=== PATIENT | male | born 1935 | race Caucasian/White ===

== ENCOUNTER 2019-10-16 01:21 | Inpatient (IN) | payer MEDICARE ==
[~2019-10-16] VITALS: Ht 180.3 cm
[2019-10-16 01:47] VITALS: BP 124/62
[2019-10-16] MEDS ORDERED: COGENTIN0.5 MG PO (01:56)
[2019-10-16] MEDS ORDERED: EXELON1 EAC2 TD (01:58)
[2019-10-16] MEDS ORDERED: NATURE'S BLEND F1 MG PO (01:59)
[2019-10-16] MEDS ORDERED: FLOMAX0.4 MG PO (01:59)
[2019-10-16] MEDS ORDERED: METOPROLOL SUCC25 M2 PO (02:03)
[2019-10-16] MEDS ORDERED: REMERON30 M1 PO (02:04)
[2019-10-16] MEDS ORDERED: COL-RITE100 M1 PO (02:06)
[2019-10-16] MEDS ORDERED: VISTARIL50 MG PO (02:07)
[2019-10-16] MEDS ORDERED: VITAMIN D31250 MC1 PO (02:08)
[2019-10-16] MEDS ORDERED: ZOCOR80 MG PO (02:08)
[2019-10-16] MEDS ORDERED: VISTARIL25 MG PO (02:10)
[2019-10-16] MEDS ORDERED: TYLENOL EXTRA500 MG PO (02:11)
[2019-10-16] MEDS ORDERED: OXYGEN NAS (02:12)
--- NOTE | 2019-10-16 02:25 | NUR ---
KENDY YLONS A a 84 year old M admitted via stretcher from the EMERGENCY ROOM as a emergency 72 hr. hold admission. Arrived on unit at 0125. ALLERGIES: NKA. Vital signs are: 97.3-58-20 124/62 NO FORMS SIGNED ON ADMISSION. ADMITTED UNDER THE SERVICES OF DR BIENVENIDO COLEARYAN. A search was conducted and hazardous articles were removed. Client was oriented to the unit. PT ALERT TO PERSON ONLY. PT CALM & QUIET. DISINTERESTED IN ADMISSION PROCESS. NU GONZALEZ
[2019-10-16 02:37] VITALS: BP 124/62
--- NOTE | 2019-10-16 03:08 | NUR ---
DR NGUYEN NOTIFIED OF CONSULT & MED REQ READY FOR REVIEW. CONSULT TO BE PLACED UNDER DR LOVELACE
--- NOTE | 2019-10-16 03:12 | NUR ---
DR NGUYEN ON UNIT TO SEE PT FOR MEDICAL CONSULT
--- NOTE | 2019-10-16 07:39 | NUR ---
ELLEN QUICK, HYDROGEN BRAZE FURNACE OPERATOR NOTIFIED OF NEW ADMISSION VIA VOICE MAIL BY NIGHT STAFF NURSE.
[2019-10-16 07:59] VITALS: BP 122/70
[2019-10-16 08:07] LABS: BASO % 0.2 % (0.0-1.0); EOS # 0.1 10*3/uL (0.0-0.4); EOS % 2.4 % (1.0-4.0); HEMATOCRIT 39.3 % (42.0-52.0); LYMPH # 1.1 10*3/uL (1.3-4.4); LYMPH % 21.2 % (27.0-41.0); MEAN CELL VOLUME 87.3 fl (80.0-94.0); MEAN CORPUSCULAR HGB 26.9 pg (27.0-31.0); MEAN CORPUSCULAR HGB CONC 30.8 g/dl (33.0-37.0); MEAN PLATELET VOLUME 9.7 fl (9.6-12.3); MONO # 0.5 10*3/uL (0.1-1.0); MONO % 9.7 % (3.0-9.0); NEUT # 3.3 10*3/uL (2.3-7.9); NEUT % 66.3 % (47.0-73.0); PLATELET COUNT AUTOMATED 118 10*3/uL (130-400); RED CELL DISTRI WIDTH 13.2 % (0-14.5)
[2019-10-16 08:24] LABS: ALKALINE PHOSPHATASE 122 U/L (45-117); BUN 20 mg/dl (7-24); CHLORIDE 108 mmol/L (98-107); CHOLESTEROL 138 mg/dL (<200); CREATININE 0.79 mg/dL (0.70-1.30); HDL CHOLESTEROL 54 mg/dl (40-60); LDL CHOLESTEROL 73 mg/dL (9-159); POTASSIUM 4.2 mmol/L (3.5-5.1); SGOT/AST 10 IU/L (3-35); SGPT/ALT 12 U/L (12-78); SODIUM 141 mmol/L (136-145); TOTAL PROTEIN 6.3 gm/dL (6.4-8.2); TRIGLYCERIDES 55 mg/dl (<150); VLDL CHOLESTEROL 11 mg/dL (6-40)
[2019-10-16 09:08] LABS: VITAMIN D, 25-HYDROXY 55.6 ng/mL (30-100)
--- NOTE | 2019-10-16 10:00 | NUR ---
DR. NEUMANN ON UNIT TO ASSESS PATIENT.
--- NOTE | 2019-10-16 10:14 | NUR ---
PSYCHOSOCIAL HX COMPLETED THIS DATE
--- NOTE | 2019-10-16 12:00 | NUR ---
DR UPDATED ON PT STATING SHE VOMITED. DR STATED HE WOULD LOOK AT MEDS AND MAYBE ORDER ZOFRAN FOR NAUSEA.
--- NOTE | 2019-10-16 15:10 | NUR ---
Shift chart check completed.
--- NOTE | 2019-10-16 17:37 | NUR ---
PT WITHDRAWN TO SELF. QUIET AND MUTE THIS SHIFT. NO OUTBURTS NOTED. NO HALLUCINATIONS OR DELUSIONS NOTED. WILL CONTINUE TO MONITOR BEHAVIORS WITH Q15 MINUTE SAFETY CHECKS. SEE [facility] FLOWS[facility]ET FOR SPECIFIC MONITORING.
--- NOTE | 2019-10-16 19:56 | NUR ---
24 HR chart check completed.
[2019-10-16 20:00] VITALS: BP 130/72
--- NOTE | 2019-10-16 21:40 | NUR ---
PT REMAINS WITHDRAWN & MUTE. HOWEVER DID NOD HIS HEAD YES OR NO WHEN ASKED QUESTIONS. ONLY WORDS HE SPOKE SOFTLY WAS WHEN HE STATED HIS NAME. QUESTIONS ASKED. CAN YOU TALK- NODDED HEAD NO ARE YOU DEPRESSED-NODDED HEAD YES ARE YOU UPSET ABOUT SOMETHING- NODDED HEAD YES DO YOU UBALDO TO TALK ABOUT IT- NODDED HEAD NO WILL YOU TAKE YOUR MEDICATIONS-NODDED HEAD YES CAN I GET YOU ANYTHING-NODDED HEAD NO MADE NO EYE CONTACT, ATE SNACK. COMPLIANT WITH MEDS, SITS QUIETLY & KEEPS TO SELF. 2 STAFF ASSISTS REQUIRED. INCONTINENT OF URINE.
--- NOTE | 2019-10-17 02:12 | NUR ---
PT WAS TURNED ONTO BACK & ON ROUNDS AT THIS TIME PT WAS NOTED TO REPOSITION HIMSELF ON HIS LEFT SIDE.
--- NOTE | 2019-10-17 06:00 | NUR ---
PT HAS SLEPT PAST 2199
[2019-10-17 07:53] VITALS: BP 120/68
--- NOTE | 2019-10-17 09:00 | NUR ---
Treatment Plan meeting was held this a.m. with Dr. Zuñiga, RN, AT, TOOL ADJUSTER-S and Drafting Instructor. Plan for discharge Next Week. Pt. came to [facility] from [facility]. Will reach out to facility today to discuss discharge Planning.
--- NOTE | 2019-10-17 09:00 | NUR ---
Occupational Therapy evaluation completed on three with full evaluation to follow. Recommend occupational therapy per plan of care and SNF upon discharge. Thank you for this referral. Shaylee Russo OTR/L
--- NOTE | 2019-10-17 10:29 | NUR ---
PHYSICAL THERAPY Physical Therapy evaluation completed in U with full evaluation to follow. Recommend physical therapy per plan of care and SNF upon discharge. Thank you for this referral. Rajeev Jimenez SPT Kamilah Mckeon PT
--- NOTE | 2019-10-17 11:15 | NUR ---
Family meeting held this AM by phone with pt's daughter/DPOAHC Edith High. Edith explained that pt moved to [facility] one week before the NFs were closed to visitors because of COVID 19. Edith stated that they hadn't even gotten pt's room entirely set-up with his belongings. Pt's roommate did get COVID and pt was then forced into isolation for 42 days and then moved to a new room. Now that outdoor visitation is allowed, Edith sees pt 2x a week and pt's brother Murray sees pt 1x a week. When asked about pt's interests, pt enjoyed anything that was made from occupied [place]. Edith stated that at one time, pt had the largest collection in the [place] of items from occupied [employer]. He enjoyed restoring his [facility] house, which Edith is currently moving in to. Pt doesn't watch much TV but does like Wheel of Fortune, Jeopardy, and [employer]. Confirmed discharge plan of pt returning to [facility].
--- NOTE | 2019-10-17 11:17 | NUR ---
PT'S DAUGHTER CALLED IN AND SPOKE TO THIS NURSE. THE DAUGHTER STATED SHE IS THE POA. THIS NURSE ASKED THE POA TO PROVIDE THE PAPERWORK. THE DAUGHTER STATED THE FACILITY NEVER CALLED HER YESTERDAY AND WAS UNAWARE THAT THE PT WAS BROUGHT HERE AND THE REASON FOR ADMISSION. THIS NURSE LET THE PT SPEAK TO HIS DAUGHTER AND THE PT GAVE VERY SIMPLE RESPONSES. THE DAUGHTER SAID HELLO TO HER FATHER AND HE SAID HELLO BACK. THE DAUGHTER ASKED THE PT IF HE TRIED TO HURT HIMSELF AND HE STATED YES. THE DAUGHTER THEN ASKED WHY AND THE PT STATED "I DONT KNOW" THE PT THEN REFUSED TO SPEAK TO THE DAUGHTER. THE PATIENT SAT THERE WITH HIS HEAD DOWN AND EYES CLOSED AND WAS QUIET. THIS NURSE ASKED THE DAUGHTER TO CALL BACK SO SHE COULD SPEAK TO THE DIRECTOR OF VIDEO ANALYTICS. THE DAUGHTER DID CALL BACK AND WAS TRANSFERRED TO THE DIRECTOR OF VIDEO ANALYTICS AT THAT TIME. THE DAUGHTER SOUNDED VERY CONCERNED AND CARING TOWARDS HER FATHER.
--- NOTE | 2019-10-17 11:53 | NUR ---
AM GROUP/[facility] PT WAS PRESENT FOR MORNING GROUP THERAPY RECLINED IN A RONEN CHAIR. PT WOULD NOT RESPOND TO MY ASSESSMENT QUESTIONS AND TURNED DOWN ANY ACTIVITY OFFERED. PT WAS REMOVED FROM THE ROOM AND RETURNED ONLY TO NAP IN HIS CHAIR. PT EXHIBITED NO ADVERSE BEHAVIORS WHILE IN GROUP.
--- NOTE | 2019-10-17 11:55 | NUR ---
Spoke with Litzy at [facility]. Pt. is a [employer] Care Resident and can return at discharge. Discussed discharge Plans for next week, Provided with Updates and Faxed clinical Updates to Facility.
--- NOTE | 2019-10-17 13:13 | NUR ---
P: DEPRESSED MOOD. VOICED HOMICIDAL THOUGHTS TOWARD DAUGHTER. EXPRESSED BEING FRUSTRATED WITH DAUGHTER BECAUSE SHE HASN'T BEEN IN TO SEE HIM. HE IS SAD AND FEELS LONELY. I: ONE ON ONE FOR EMOTIONAL SUPPORT. PROVDIED ORIENTATION TO PLACE. R: EFFECTIVE. PATIENT VOICED SIMPLE, ONE TO TWO WORDS ANSWERS, DURING ASSESSMENT. PATIENT COMMUNICATING A LITTLE BETTER TODAY. ALERT TO PERSON, MONTH, YEAR, AND LOCATION. BELIEVES HE IS IN [facility]. DEPRESSED, SAD, LONELY, HOPELESS/HELPLESS. FLAT AFFECT. DENIES HALLUCINATIONS, DELUSIONS, HI, AND PAIN. MEDICATION [id number] WITH EDUCATION. Q 15 MINUTE SAFETY CHECKS MAINTAINED. 2 ASSIST WITH ADL'S. INCONTINENT OF BOWEL AND BLADDER. GERICHAIR FOR COMFORT. SET UP FOR MEALS. INTAKES ARE IMPROVING WITH ADEQUATE FLUIDS. ATTENDED MORNING GROUP SESSION. MORE INTERACTIVE WITH NURSE. P: CONTINUE TO MONITOR FOR SI, HI, MOOD, MEAL INTAKES. PROVIDE ONE ON ONE FOR EMOTIONAL SUPPORT. ENCOURAGE TO INTERACT WITH STAFF. ENCOURAGE PATIENT TO ATTEND MORE GROUP SESSIONS.
--- NOTE | 2019-10-17 14:54 | NUR ---
PATIENT ASSISTED INTO SHOWER CHAIR. UPON REMOVING AMY HOSE PATIENT HAS AN OPEN AREA TO RIGHT MULLEN THAT WAS PREVIOUSLY SCABBED OVER. NOTIFIED ALEJANDRA MARTINEZ OF OPEN AREA AND NEED WOUND ORDERS. NOTIFIED AUTO EMISSIONS TECHNICIAN. NOTIFIED NICHOLAS, PATIENTS DAUGHTER.
--- NOTE | 2019-10-17 15:51 | NUR ---
PM GROUP/RELAXATION PT WAS PRESENT AT THE START OF GROUP SEATED AT A TABLE STILL EATING LUNCH. PT WAS ASSISTED WITH HIS DRINK AND GIVEN A WET WIPE TO WIPE HIS NOSE. PT WAS FINISHED AND WHEN THE TRAY WAS REMOVED PT WAS OFFERED MANY ACTIVITY OPTIONS. PT SHOOK HIS HEAD NO TO ALL OFFERS. PT FELL ASLEEP. PT WAS REMOVED BY [facility] AND TAKEN TO BED. PT EXHIBITED NO ADVERSE BEHAVIORS WHILE IN GROUP.
--- NOTE | 2019-10-17 18:09 | NUR ---
PATIENT IN DINING AREA CHEWING CHICKEN TENDERS AND SPITTING OUT THEM OUT ON THE TABLE AFTER A COUPLE OF CHEWS. PATIENT TOLERATING ICE CREAM DURING DINNER. PATIENT ORDERED ANOTHER TRAY FOR DINNER WITH SOFT FOODS AND PATIENT OFFERED MORE ICE CREAM AT THIS TIME. PATIENT TOLERATING SOFT FOODS AT THIS TIME AND NOT REGULAR FOOD PER DIET ORDER
--- NOTE | 2019-10-17 19:43 | NUR ---
24 HR chart check completed.
[2019-10-17 20:00] VITALS: BP 106/52
--- NOTE | 2019-10-18 00:37 | NUR ---
PT HAS SAT IN THE DINING ROOM & KEPT TO HIMSELF. ALERT TO PERSON ONLY. HAS REMAINED MOSTLY NON VERBAL. APPEARS DEPRESSED & SAD. ATE SNACK. COMPLIANT TAKING MEDICATIONS WHOLE. 2 STAFF ASSISTS REQUIRED. INCONTINENT OF URINE.
--- NOTE | 2019-10-18 05:52 | NUR ---
PT HAS SLEPT QUIETLY PAST 2200. INCONTINENT OF URINE THIS AM.
--- NOTE | 2019-10-18 07:20 | NUR ---
PHYSICAL THERAPY Patient seen this am for therapy visit and was resting semi reclined in activity room Nichol chair upon therapist arrival. Patient identified by name / on L wrist band as patient was pretty much non-verbal throughout most of treatment. OT casting assistant was also present this morning for observation only as patient was transported via Nichol chair to [facility] for treatment. Patient able to follow short, simple commands while performing sit to stand transfer at [facility], MOD A x 2, tolerating approx 40 seconds static stand first attempt and 1 minute second trial, CGA to maintain upright position, however with increased B knee flexion. Patient reported increased c/o of pain, 10/10 when asked, and was only able to respond with hand gesture by holding up 10 fingers. Following brief seated rest break, patient tolerated B LE prolonged stretch secondary to increased B hamstring tightness. Patient nodded yes when asked if pain felt better, but did not rate this time. Patient remained in Nichol chair with body alarm in activity room, under [facility] staff Supervison. Will continue per POC as tolerated, total treatment time 15 minutes. Moises Azar, TAPROOM ATTENDANT
--- NOTE | 2019-10-18 07:36 | NUR ---
OT NOTE Prior to coming to the floor spoke with nursing staff and reported that therapy was coming to treat this pt, nursing gave approval. Pt was seen this A.M. 1:1 for 16 minute OT session with PARADI TENDER and nursing staff present for observation only. Upon arrival pt was sitting upright in the farhad chair in the dining colon. Pt identified by name and on wristband due to pt being non verbal throughout session. Pt was taken out to the hallway where he completed multiple sit to stand transfers from chair level with modA X 2 and use of giles rail for UE support. Challenged pt's static standing tolerance needed for increased I in self care tasks and functional transfers, pt was able to tolerate aprox 40-60 seconds before sitting due to fatigue and pain in B knees which he rated a 10/10 by holding up his fingers. Pt was left sitting upright in the farhad chair in the dining colon under [facility] staff supervision. Continue with rec D/C plan to SNF. BRIANNA Herrera
--- NOTE | 2019-10-18 07:42 | NUR ---
PHYSICAL THERAPY Screen received pt has already been evaluated and is on caseload Kamilah Mckeon PT
[2019-10-18 07:58] VITALS: BP 124/61
--- NOTE | 2019-10-18 09:00 | NUR ---
Treatment Plan meeting was held this a.m. with Dr. Zuñiga via telephone, HOUSEKEEPER NANNY Shannan, RN, AT, HEALTHCARE BUSINESS ANALYST-S and Front Counter Attendant in attendance. Plan for discharge Next Week. Pt. will return to the [facility].
--- NOTE | 2019-10-18 09:15 | NUR ---
ANA LUISA DAIRY NUTRITION SPECIALIST ON UNIT TO SEE PT AT THIS TIME.
--- NOTE | 2019-10-18 11:47 | NUR ---
AM GROUP PT WAS BROUGHT INTO GROUP THERAPY BY NURSING FROM THE QUIET ROOM. PT WAS GIVEN WARM BLANKETS AND FELL ASLEEP RECLINED IN A RONEN CHAIR. PT WOULD WAKE, LOOK AROUND AND GO BACK TO SLEEP.
--- NOTE | 2019-10-18 12:39 | NUR ---
SPEECH PATHOLOGY Clinical swallowing evaluation completed as per orders. Patient was admitted from [facility] with major depressive disorder and suicidal ideation with further history including CAD, AD and anxiety. Patient is currently receiving a soft diet and thin liquid due to reported difficulty tolerating chicken tenders recently. He was seen during lunchtime meal. Patient was seated upright in farhad chair in activity room with peers. Patient elicited no verbalization but answered questions by head nod. He did not follow commands. His eyes remained closed for most of the encounter. He required encouragment to eat. He was fed by clinician and was given soft foods and thin liquid. He demonstrated safe tolerance of items given with no overt s/s aspiration however intake was poor overall. Recommend patient remain on soft diet and thin liquid. Recommend use of safe swallow precautions such as small bites/sips, alternating liquid and solid and encouragment to eat as needed. Follow up therapy will be conducted focusing on education and use of safe swallow precautions to ensure safety of diet. Results and subhash. were shared with staff who verbalized understanding. Ref[facility] to [facility] for further information. Thank you for this referral. TAYLOR ONEIL MSCCC-LEARNING AND DEVELOPMENT INTERN
--- NOTE | 2019-10-18 15:53 | NUR ---
PM GROUP PT DID NOT ATTEND AFTERNOON GROUP THERAPY. PT WAS IN BED RESTING.
[2019-10-18 20:00] VITALS: BP 119/60
--- NOTE | 2019-10-18 23:05 | NUR ---
24 HR chart check completed.
--- NOTE | 2019-10-19 01:44 | NUR ---
PT HAS SAT IN THE DINING ROOM & KEPT TO HIMSELF. ALERT TO PERSON. LIMITED VERBALIZATION. DOES RESPOND OCCASIONALLY WITH 1-2 WORDS WITH SOFT SPEECH & NODS HEAD WITH YES OR NO. DEPRESSED & SAD WITH VERY LITTLE EYE CONTACT. GOOD APPETITE FOR SNACK & EATS INDEPENDENTLY. COMPLIANT TAKING MEDICATIONS WHOLE. 2 STAFF ASSISTS REQUIRED WELL CANDELARIA LIFT. INCONTINENT OF URINE.
--- NOTE | 2019-10-19 06:09 | NUR ---
PT HAS SLEPT FOR APPROX 6-7 HOURS OF BROKEN SLEEP
--- NOTE | 2019-10-19 07:05 | NUR ---
PHYSICAL THERAPY Patient seen this am for therapy visit and was semi reclined in activity room Nichol chair upon therapist arrival. Patient identified by name / on wristband since patient was pretty much non verbal during entire treatment. OT medical staff assistant was also present for observation only this session as patient tolerated B LE prolonged stretch to improve LE join ROM. Patient performed several sit to stand transfers at [facility], MOD A for initial transfer and then MIN A x 2 for several additional transfers, use of B UE support. Patient tolerated approx 1 minute static stand each trial, demonstrating B knee flexion contracture. Patient also ambulated 12'x 1, MOD A, with use of wh walker, demonstrating increased difficulty with safe walker navigation, requiring MIN therapist assist to complete gait ex. Patient seemed happy with his progress this session as he smiled when congratulated. Patient returned to his Nichol chair and remained in activity room at table with body alarm for safety, awaiting breakfast, under [facility] staff Supervision. Will continue per POC as tolerated, total treatment time 14 minutes. Moises Azar, EQUIPMENT MANAGER
--- NOTE | 2019-10-19 07:23 | NUR ---
OT NOTE Prior to coming to the floor spoke with nurse Ori and reported that therapy was coming to treat this pt, nurse gave approval. Pt was seen this A.M. 1:1 for 23 minute OT session with FIELD SERVICER and nursing staff present for observation only. Upon arrival pt was sitting upright in the farhad chair in the dining colon. Pt identifed by name and on wristband due to being non verbal throughout session. Pt was taken out to the hallway where he completed multiple sit to stand transfers from chair level with modA X 2 for inital stand and Torres X 2 for all others with use of hand rail for UE support. Challenged pt's static standing tolerance needed for increased I in self care tasks and functional transfers. Pt was able to tolerate aprox 60 seconds at a time before sitting due to fatigue and generalized weakness. Pt then completed a standing pivot from the farhad chair to a straight back chair to simulate a commode transfer. Pt required Torres X 2 for inital sit to stand followed by standing pivot with Torres for walker navigation. Pt then transferred back from the chair to the farhad chair again with Torres X 2 for sit to stand and min for standing pivot. While seated in the chair pt completed BUE towel exercises with min resistance over all planes for 1 X 10 to increase and restore maximum functional use. Pt was left sitting upright in the farhad chair in the dining colon under [facility] staff supervision and body alarm activated for safety. Continue with rec D/C plan to SNF. BRIANNA Herrera
--- NOTE | 2019-10-19 07:52 | NUR ---
SPEECH PATHOLOGY Treatment was attempted this am during breakfast meal. Patient was sitting upright in activity room with peers, breakfast tray in front of him. Patient appeared withdrawn, his eyes remained closed but he was not sleeping. He only responded to yes/no questions with a minimal head nod. Clinician offered to assist him with breakfast but he refused. He was offered various other items to help with consumption but he again refused. Encouragement was not helpful. Due to refusal, therapy was unable to be conducted at this time. Will attempt again at a later time. TAYLOR ONEIL MSCCC-SPRAY PAINTER
[2019-10-19 08:12] VITALS: BP 103/56
--- NOTE | 2019-10-19 09:00 | NUR ---
Treatment Plan meeting was held this a.m. with Dr. Zuñiga via telephone, ELECTROTYPE MOLDER Shannan, RN, AT, BOBBIN INSPECTOR-S and Assessment Manager in attendance. Plan for discharge Next Week. Pt. will return to the [facility].
--- NOTE | 2019-10-19 11:24 | NUR ---
Attempted to engage pt in conversation this AM. Pt briefly looked at this marketing underwriter and then looked down at the table. Pt would not speak to this marketing underwriter nor make any acknowledgment to comments or questions directed to him.
--- NOTE | 2019-10-19 11:52 | NUR ---
AM GROUP/LEISURE INTERESTS PT WAS PRESENT FOR MORNING GROUP THERAPY RECLINED IN A RONEN CHAIR. PT WAS AWAKE AND AN ATTEMPT WAS MADE AT CONVERSATION. SW REPORTED THAT PT COLLECTED ITEMS FROM [employer] [place] AND THIS RN NEUROLOGY ASKED HIM ABOUT COLLECTING FIGURINES, HOW YOU COULD TELL IF THEY WERE MADE IN THAT ERA, ETC. PT DID NOT ANSWER OR MAKE EYE CONTACT GIVEN SEVERAL MINUTES TO DO SO. PT SOON CLOSED HIS EYES. PT WAS LEFT TO REST.
--- NOTE | 2019-10-19 12:18 | NUR ---
P- DEPRESSED MOOD, HOPELESS/HELPESS, DESPONDENT, VERY POOR EYE CONTACT, MINIMAL VERBAL INTERACTIONS WITH STAFF EVEN WHEN DIRECTLY SPOKEN TO. I- ORIENTATION, MOOD AND BEHAVIORS ASSESSED. ASSESSED PT FOR SI/HI, INTENT OR PLAN. ASSESSED PT FOR S/S HALLUCINATIONS, PARANOIA AND/OR DELUSIONS. MEDICATIONS ADMINISTERED PER PHYSICIAN'S ORDERS. ASSISTANCE WITH ADL CARE PROVIDED NEEDED. ENCOURAGED PT TO ATTEND AND PARTICIPATE IN FLOWERS MILIEU GROUPS AND ACTIVITIES. R- PT IS ALERT AND ORIENTED TO PERSON, APPROXIMATE PLACE, SITUATION, YEAR AND PRESIDENT. RESPS EASY AND EVEN ON ROOM AIR. MOOD APPEARS OVERWHELMINGLY DEPRESSED, FLAT, SAD AFFECT. VERY POOR EYE CONTACT. MINIMAL VERBAL INTERACTIONS WITH STAFF EVEN WHEN DIRECTLY SPOKEN TO. PT NODS HEAD YES OR NO IN RESPONSE TO THE LARGE MAJORITY OF QUESTIONS ASKED BY THIS NURSE. HOWEVER, PT IS ABLE TO CONVEY THAT HE IS FEELING SAD, DEPRESSED AND HOPELESS. PT DENIES SUIDICAL OR HOMICIDAL THOUGHTS AT THIS TIME. PT ABLE TO CONVEY THAT HE UNDERSTANDS HE IS IN THE HOSPITAL TO GET HELP FOR HIS DEPRESSION AND IS IN AGREEMENT. STAFF ATTEMPTS TO ENGAGE PT IN CONVERSATION ARE INEFFECTIVE EVEN WHEN STAFF ATTEMPTS TO TALK WITH HIM ABOUT HIS LIKES AND INTERESTS. PT IS MEDICATION COMPLIANT WITHOUT DIFFICULTY. DENIES PAIN OR PHYSICAL DISCOMFORT. RELIANT ON STAFF FOR ASSISTANCE WITH ADL CARE. CANDELARIA LIFT FOR TRANSFERS. PT FEEDS SELF. ATE 50% OF BREAKFAST AND IS FEEDING SELF LUNCH AT THIS TIME. PT DENIES HALLUCINATIONS, NO RESPONSE TO INTERNAL STIMULI NOTED. NO PARANOIA OR DELUSIONS NOTED. NO ACUTE DISTRESS NOTED. P- PLAN TO CONTINUE CURRENT TREATMENT, CONTINUE TO MONITOR MOOD AND BEHAVIORS, PROVIDE APPROPRIATE REORIENTATION AND REDIRECTION NEEDED. PROVIDE EMOTIONAL SUPPORT.
--- NOTE | 2019-10-19 15:53 | NUR ---
PM GROUP PT WAS PRESENT FOR THE START OF AFTERNOON GROUP THERAPY BUT WAS REMOVED TO BE CHANGED AND LAYED DOWN TO REST.
--- NOTE | 2019-10-19 16:08 | NUR ---
OCCUPATIONAL THERAPY CO-SIGN I approve of the Occupational Therapy notes written above. IRMA HORNE, OTR/L
[2019-10-19 19:47] VITALS: BP 116/57
--- NOTE | 2019-10-20 00:53 | NUR ---
ISOATIVE TO SELF. SNACK EATEN PO FLUIDS TAKEN. MEDICATION COMPLIANT. MINIMAL TO NO VERBAGE FROM CLIENT. HEAD SHAKES AN SHOULDER SHRUGS FOR ANSWERS. EMOTIONAL SUPPORT PROVIDED. WILL MONITOR FOR CHANGES IN MOOD/BEHAVIOR AND Q 15 MINS AND PRN FOR SAFETY
--- NOTE | 2019-10-20 05:49 | NUR ---
SLEPT 7-8 HOURS. 24 HR chart check completed.
--- NOTE | 2019-10-20 07:05 | NUR ---
PHYSICAL THERAPY Patient seen this am for therapy visit and was sitting up in activity room Nichol chair upon therapist arrival. Patient identified by name / on wristband as patient was pretty much non verbal the entire session OT commercial real estate assistant was also present this morning for observation only as patient reports no c/o's pain by nodding his head "no" when questioned. Patient transfers sit to stand at handrail, MIN A x 2, B UE handrail support, tolerating approx 85 seconds static stand. Patient ambulates with use of wh walker, MIN A, 15'x 1 to bathroom, demonstrating decreased shuffling gait pattern, with NBOS. Patient becomes very unsteady during all 90 /180 turns, especially when he gets tired and ambulated additional 7'x 1, from toilet to sink, demonstrating quick onset of fatigue and returned to his Nichol chair following all treatment. Patient remained in Nichol chair at table in activity room with body alarm, under [facility] staff Supervision. Will continue per POC as tolerated, total treatment time 16 minutes. Moises Azar, PBX WIRE CHIEF
[2019-10-20 07:07] VITALS: BP 114/74
--- NOTE | 2019-10-20 07:15 | NUR ---
OT NOTE Prior to coming to the floor spoke with nursing staff and reported that therapy was coming to treat this pt, nursing gave approval. Pt was seen this A.M. 1:1 for 15 minute OT session with STICKER HAND and nursing staff present for observation only. Upon arrival pt was sitting upright in the farhad chair in the dining colon. Pt identified by name and . Pt was taken out to the hallway where he completed multiple sit to stand transfers from chair level with Torres X 2 and use of hand rail for UE support. Challenged pt's static standing tolerance needed for increased I in self care tasks and functional transfers, pt was able to tolerate aprox 60-85 seconds at a time before sitting due to fatigue. Pt was then taken to the bathroom where he completed sit to stand from chair level with modA X 2 and use of w/w for UE support followed by functional mobility to the standard commode from the doorway with Torres and use of w/w. Pt transferred on to the standard commode with Torres for safety with alignment and low surface and off with mod-maxA. Pt then stood sink side while washing his hands, throughout pt required modA to correct retrograde posture. Pt tolerated standing unsupported sink side while washing his hands for aporx 30 seconds before sitting. Pt was left sitting upright in the dining colon in his farhad chair with body alarm activated for safety and under [facility] staff supervision. Continue with rec D/C plan to SNF. RIMA Herrera/Marquis
--- NOTE | 2019-10-20 07:54 | NUR ---
SPEECH PATHOLOGY Patient was seen for treatment this am, conducted during breakfast meal. Patient was alert, sitting upright in farhad chair in activity room with peers. He was able to feed himself today and displayed good intake of meal, which consisted of finger foods and thin liquids. Patient ate slowly, consumed small bites and sips and alternated liquid and solid independently. Patient displayed no oral or pharyngeal swallowing difficulty. Recommend he remain on soft diet and thin liquid. Continued treatment is not warranted as he is tolerating diet without difficulty. Discharge services at this time. Thank you for this referral. It has been a pleasure taking part in this patient's care. TAYLOR ONEIL MS[facility]-AIR[employer]NE AND AIR DELIVERY SPECIALIST
--- NOTE | 2019-10-20 09:00 | NUR ---
Treatment Plan meeting was held this a.m. with Dr. Zuñiga, RN, AT, COMB WINDER-S and Acid Polymerization Operator. Plan for discharge Next Week. Pt. will return to [facility] at discharge.
--- NOTE | 2019-10-20 09:11 | NUR ---
ALEJANDRA MARTINEZ MAINTENANCE ELECTRICIAN ON UNIT TO ASSESS PT, UPDATE PROVIDED.
--- NOTE | 2019-10-20 09:25 | NUR ---
Met with pt in the AM. Pt made eye contact and said, "Good morning." Pt then looked down toward the table. Spoke to pt further. Pt nodded his head appropriately but made no further eye contact.
--- NOTE | 2019-10-20 12:04 | NUR ---
AM GROUP PT WAS PRESENT FOR MORNING GROUP THERAPY BUT PT IS SELECTIVELY MUTE WITH THIS DISTRIBUTION SYSTEMS SERVICEPERSON AND WILL NOT RESPOND TO ANY QUESTIONS OF INTERESTS OR OFFERS OF ACTIVITIES.
--- NOTE | 2019-10-20 12:09 | NUR ---
P: PT MOOD IS DEPRESSED. PT SELECTIVELY MUTE, REFUSING TO SPEAK WITH STAFF, REFUSING TO PARTICIPATE IN ASSESSMENTS.PT ISOLATIVE TO SELF, NO INTERACTION NOTED WITH PEERS. PT RESISITIVE TO AM PO MEDS. I: PROVIDE EMOTIONAL SUPPORT AND 1:1 FOR PT TO VOICE FEELINGS, ENCOURAGE PT TO CONVERSE WITH STAFF AND PEERS AND PARTICIPATE IN ASSESSMENTS. ENCOURAGE MED COMPLIANCE R: PT ALERT TO PERSON ONLY, WILL OPEN EYES WHEN HIS NAME IS SPOKEN, WILL NOT MAKE EYE CONTACT, AT TIMES WILL NOD YES OR NO. PT MOOD REMAINS DEPRESSED, PT CONTINUES TO ISOLATE TO SELF, NO INTERACTION NOTED WITH STAFF OR PEERS. NO OVERT S/S OF HALLUCINATIONS OR DELUSIONS NOTED. NO SUICIDAL THOUGHTS OR BEHAVIORS NOTED. PT UP TO A GERICHAIR, REQUIRING A CANDELARIA LIFT FOR TRANSFERS D/T INABILITY TO BEAR WEIGHT AND TRANSFER. PT INCONTINENT OF BOWEL AND BLADDER, EPISODES OF INCONTINENCE NOTED, CARE PROVIDED NEEDED. PT MED COMPLIANT WITH ENCOURAGEMENT. PT REQUIRES STAFF TO SET UP TRAY AT MEAL TIMES, WILL FEED SELF WITH ENCOURAGEMENT. P: ENCOURAGE MED COMPLIANCE, ENCOURAGE SOCIALIZATION WITH STAFF AND PEERS, ENCOURAGE PT TO PARTICIPATE IN ASSESSMENTS, PROVIDE EMOTIONAL SUPPORT AND 1:1 FOR PT TO VOICE FEELINGS, MONITOR PT BEHAVIORS ON Q15 MIN SAFETY CHECKS.
--- NOTE | 2019-10-20 15:46 | NUR ---
PM GROUP PT WAS PRESENT FOR AFTERNOON GROUP THERAPY SEATED AT A TABLE WATCHING A MOVIE. PT WAS FOCUSED AND QUIET. PT EXHIBITED NO ADVERSE BEHAVIORS WHILE IN GROUP.
[2019-10-20 19:31] VITALS: BP 110/62
--- NOTE | 2019-10-20 20:31 | NUR ---
MEDICATION COMPLIANT. REFUSED SNACK. REFUSED 1:1. MOM GIVEN FOR BOWELS HE HAS NOT HAD A BM SINCE 10/17/19. WILL MONITOR FOR CHANGES IN MOOD/BEHAVIOR AND Q 15 MIN AND PRN FOR SAFETY
--- NOTE | 2019-10-21 05:55 | NUR ---
MOM NOT EFFECTIVE FOR CONSTIPATION 24 HR chart check completed.
--- NOTE | 2019-10-21 07:05 | NUR ---
PHYSICAL THERAPY Patient seen this am for therapy visit and was sitting semi reclined in activity room Nichol chair upon therapist arrival. Patient identified by name / on wristband and was very quiet / sluggish this morning, requiring repeated v/c's to complete all treatment. Patient transfers sit to stand at handrail, MOD A x 2, tolerating approx 30-40 seconds static stand with increased B knee flexion. Patient was transported to bathroom via Nichol chair and performed SPT to toilet, use of wh walker, MOD A, demonstrating POOR safety awareness and increased difficulty with walker navigation. Patient returned to Nichol chair and tolerated B LE hamstring stretch, secondary to increased LE tightness. Patient demonstrated increased fatigue and remained at table in activity room with body alarm / [facility] staff Supervision. Will continue per POC as tolerated, total treatment time 14 minutes. Moises Azar, ENROLLMENT SERVICES DEAN
--- NOTE | 2019-10-21 07:20 | NUR ---
OT NOTE Prior to Ot session Therapy called up to [facility] and talked to nurse Annalisa to get permission to treat pt. Pt was sitting in farhad chair in dining colon opon arrival, agreeable to 25 minute OT session. Pt identified by name and date of with no complaints to date per to shaking his head no due to being nonverbal.Sit-stand from farhad chair modA x2 [facility], pt was able to tolerate approx 30 sec before sitting. Pt was taken to the bathroom where he completed sit-stand from farhad chair modA x2 with w/w. Stand pivot to commode maxA with w/w and grab bar. Pt was maxA when sitting on commode due to poor command follow leading to LOB. Transferring off commode modA with W/W and grab bar. Stand pivot back to farhad chair Torres with w/w due to unsteadiness. Pt left in farhad chair in dining colon with alarm active in nurses view. Continue d/c recommended SNF. KERRY Gibbs/RIMA Mccain/Marquis
[2019-10-21 07:48] VITALS: BP 117/61
--- NOTE | 2019-10-21 09:00 | NUR ---
Treatment Plan meeting was held this a.m. with ADRIAN Campbell, RN, AT, DIANA-S and Cnc Machine Setter. Plan for discharge Next Week. Pt. will return to [facility] [place].
--- NOTE | 2019-10-21 09:00 | NUR ---
Treatment Plan meeting was held this a.m. with ADRIAN Campbell, RN, AT, DIANA-S and Bit Bender. Plan for discharge Next Week. Pt. will return to [facility] [place].
--- NOTE | 2019-10-21 09:03 | NUR ---
DR DEXTER ON UNIT TO YVETTE PT; UPDATED PROVIDED TO
--- NOTE | 2019-10-21 11:54 | NUR ---
AM GROUP PT WAS PRESENT FOR MORNING GROUP THERAPY RECLINED IN A RONEN CHAIR WATCHING THE MOVIE. PT WAS OFFERED A WARM BLANKET AND ACCEPTED BY NODDING HIS HEAD YES. PT SOON DOZED OFF. PT EXHIBITED NO ADVERSE BEHAVIORS WHILE IN GROUP.
--- NOTE | 2019-10-21 12:19 | NUR ---
P: PT SELECTIVELY MUTE AT TIMES, REFUSING TO ANSWER ASSESSMENT QUESTIONS. PT ISOLATIVE TO SELF THROUGHOUT THE DAY, NO INTERACTION WITH STAFF OR PEERS NOTED. I: PROVIDE EMOTIONAL SUPPORT AND 1:! FOR PT TO VOICE FEELINGS, ENCOURAGE PT TO CONVERSE WITH STAFF AND PARTICIPATE IN ASSESSMENTS, ENCOURAGE GROUP PARTICIPATION AND SOCIALZIATION R: PT ALERT TO PERSON ONLY, WILL OPEN HIS EYES AND NOD YES OR NOT AT TIMES, AT OTHER TIMES, HE WILL JUST STARE. PT MED COMPLIANT WITHOUT DIFFICULTY, UNABLE TO PROVIDE MED EDUCATION D/T COGNITION. NO HALLUCINATIONS OR DELUSIONS NOTED. NO SUICIDAL THOUGHTS OR BEHAVIORS NOTED. PT REQUIRES A CANDELARIA LIFT FOR TRANSFERS D/T INABILITY TO BEAR WEIGHT AND ASSIST WITH TRANSFERS. PT INCONTINENT OF BOWEL AND BLADDER. P: MONITOR PT BEHAVIORS ON Q15 MIN SAFETY CHECKS, ENCOURAGE MED COMPLIANCE, PROVIDE EMOTIONAL SUPPORT AND 1:1 FOR PT TO VOICE FEELINGS, ENCOURAGE PT TO PARTICIPATE IN ASSESSMENTS AND ENCOURAGE GROUP PARTICIPATION AND SOCIALIZATION.
--- NOTE | 2019-10-21 12:19 | NUR ---
Met with pt two time this AM. The first time, pt made eye contact and nodded his head when this copy writer spoke but pt would not speak. The second time, pt looked toward this copy writer. While speaking to the pt, this copy writer bent down toward pt to make eye contact. Pt closed his eyes and continued to keep his eyes closed as if he were squeezing them tightly. Pt would not interact or acknowledge this copy writer.
--- NOTE | 2019-10-21 14:23 | NUR ---
OCCUPATIONAL THERAPY CO-SIGN I approve of the Occupational Therapy notes written above. IRMA HORNE, OTR/L
--- NOTE | 2019-10-21 14:27 | NUR ---
PHYSICAL THERAPY CO-SIGN I approve of the Physical Therapy notes written above. Kamilah Mckeon PT
--- NOTE | 2019-10-21 14:32 | NUR ---
Spoke with Yocasta at [facility] [place]. Provided with updates and discussed discharge Plans. Clinical Updates faxed to facility.
--- NOTE | 2019-10-21 15:44 | NUR ---
PM GROUP/LEISURE INTERESTS PT DID NOT ATTEND AFTERNOON GROUP THERAPY. PT WAS IN BED RESTING.
[2019-10-21 20:00] VITALS: BP 104/53
--- NOTE | 2019-10-21 23:47 | NUR ---
P-ISOLATIVE, SELECTIVELY MUTE I-REDIRECTION WITH 1:1 THERAPEUTIC INTERVENTIONS AND PRESENT REALITY. EDUCATE AND ENCOURAGE MEDICATION COMPLIANCE R-PATIENT MEDICATION COMPLIANT AT HS. PATIENT REFUSED HS SNACK BUT PROVIDED FLUIDS AT HS. PATIENT RECEIVED MILK OF MAGNESIA AT HS WITH INEFFECTIVE RESULTS AT THIS TIME. PATIENT COMMUNICATING BY NODDING HEAD FOR YES OF NO. PATIENT TURNED AND REPOSITIONED Q 2 HOURS AND PATIENT WOULD ALSO TURN BY SELF. PATIENT WITH NO HALLUCINATIONS OR DELUSIONS. PATIENT WITH NO HOMICIDAL OR SUICIDAL IDEATIONS. P-CONTINUE TO ENCOURAGE MEDICATION COMPLIANCE, CONTINUE TO PRESENT REALITY, ENCOURAGE GROUP THERAPY WHILE AWAKE
--- NOTE | 2019-10-22 06:47 | NUR ---
PATIENT SLEPT 10 HOURS OF UNINTERRUPTED SLEEP THROUGHOUT SHIFT. Q 15 MINUTE CHECKS MAINTAINED. 24 HR chart check completed.
[2019-10-22 07:27] VITALS: BP 99/41
[2019-10-22 07:51] VITALS: BP 120/68
--- NOTE | 2019-10-22 10:25 | NUR ---
DR July DEXTER ON UNIT TO ASSESS PT, UPDATE PROVIDED.
--- NOTE | 2019-10-22 10:48 | NUR ---
P: PT SELECTIVELY MUTE AT TIMES, REFUSING TO ANSWER ASSESSMENT QUESTIONS. PT ISOLATIVE TO SELF THROUGHOUT THE DAY, NO INTERACTION WITH STAFF OR PEERS NOTED. I: PROVIDE EMOTIONAL SUPPORT AND 1:1 FOR PT TO VOICE FEELINGS, ENCOURAGE PT TO CONVERSE WITH STAFF AND PARTICIPATE IN ASSESSMENTS, ENCOURAGE GROUP PARTICIPATION AND SOCIALZIATION R: PT ALERT TO PERSON ONLY, WILL OPEN HIS EYES AND NOD YES OR NOT AT TIMES, AT OTHER TIMES, HE WILL JUST STARE. PT MED COMPLIANT WITHOUT DIFFICULTY, UNABLE TO PROVIDE MED EDUCATION D/T COGNITION. NO HALLUCINATIONS OR DELUSIONS NOTED. NO SUICIDAL THOUGHTS OR BEHAVIORS NOTED. PT REQUIRES A CANDELARIA LIFT FOR TRANSFERS D/T INABILITY TO BEAR WEIGHT AND ASSIST WITH TRANSFERS. PT INCONTINENT OF BOWEL AND BLADDER. P: MONITOR PT BEHAVIORS ON Q15 MIN SAFETY CHECKS, ENCOURAGE MED COMPLIANCE, PROVIDE EMOTIONAL SUPPORT AND 1:1 FOR PT TO VOICE FEELINGS, ENCOURAGE PT TO PARTICIPATE IN ASSESSMENTS AND ENCOURAGE GROUP PARTICIPATION AND SOCIALIZATION
[2019-10-22 20:00] VITALS: BP 110/64
--- NOTE | 2019-10-23 01:21 | NUR ---
P-ISOLATIVE, SELECTIVELY MUTE I-REDIRECTION WITH 1:1 THERAPEUTIC INTERVENTIONS AND PRESENT REALITY. EDUCATE AND ENCOURAGE MEDICATION COMPLIANCE R-PATIENT MEDICATION COMPLIANT AT HS. PATIENT REFUSED HS SNACK BUT PROVIDED FLUIDS AT HS. PATIENT COMMUNICATING BY NODDING HEAD FOR YES OF NO. PATIENT TURNED AND REPOSITIONED Q 2 HOURS AND PATIENT WOULD ALSO TURN BY SELF. PATIENT WITH NO HALLUCINATIONS OR DELUSIONS. PATIENT WITH NO HOMICIDAL OR SUICIDAL IDEATIONS. P-CONTINUE TO ENCOURAGE MEDICATION COMPLIANCE, CONTINUE TO PRESENT REALITY, ENCOURAGE GROUP THERAPY WHILE AWAKE
--- NOTE | 2019-10-23 06:43 | NUR ---
PATIENT SLEPT 5 HOURS OF INTERRUPTED SLEEP THROUGHOUT SHIFT. Q 15 MINUTE CHECKS MAINTAINED. 24 HR chart check completed.
[2019-10-23 07:23] VITALS: BP 151/78
--- NOTE | 2019-10-23 10:40 | NUR ---
DR DEXTER ON UNIT TO ASSESS PATIENT, UPDATE PROVIDED.
--- NOTE | 2019-10-23 13:52 | NUR ---
PT ALERT TO SELF. PT REFUSED TO ANSWER QUESTIONS TODAY. WITHDRAWN TO HIMSELF. HOPELESS/HELPLESS AND DEPRESSED. NO OVERT S/S OF HALLUCINATIONS. NO DELUSIONS NOTED. NO SI/HI NOTED. MEDICATION COMPLIANT WITHOUT DIFFICULTIES. UNABLE TO PROVIDE MEDICATION EDUCATION DUE TO COGNITIVE IMPAIRMENT. PT HAS A POOR MEAL INTAKE. ENCOURAGING FLUID INTAKE THROUGHOUT THE SHIFT. PT IS A CANDELARIA LIFT, 2 ASSIST WITH TRANSFERS AND ADLS. INCONTINENT OF URINE THIS SHIFT. Q15 MINUTE SAFETY CHECKS MAINTAINED. ATTEMPTED TO PROVIDE 1:1 FOR THERAPEUTIC COMMUNICATION HOWEVER THE PT REFUSED TO TALK TO THIS NURSE. WILL CONTINUE TO REAPPROACH PT AND TO ENGAGE WITH PT.
[2019-10-23 20:00] VITALS: BP 132/60
--- NOTE | 2019-10-24 06:40 | NUR ---
PATIENT SLEPT 5 HOURS OF INTERRUPTED SLEEP THROUGHOUT SHIFT. Q 15 MINUTE CHECKS MAINTAINED. 24 HR chart check completed. PATIENT COMMUNICATING WITH NURSING STAFF IN FULL SENTENCES AND ASSISTING IN ADL'S THIS AM
[2019-10-24 06:46] VITALS: BP 120/61
--- NOTE | 2019-10-24 09:11 | NUR ---
DR MARTINEZ ON UNIT TO ASSESS PATIENT, UPDATE GIVEN.
--- NOTE | 2019-10-24 11:27 | NUR ---
P: PATIENT IS SAD, DEPRESSED, HOPLESS AND HELPLESS. MAKES NO COMPLAINTS. I: ONE ON ONE, SPACE PROVIDED. R: EFFECTIVE. PATIENT IS ALERT TO PERSON. MODD IS DEPRESSED, HOPELESS/HELPLESS. PATIENT IS CONFUSED. PATIENT DENIES HALLUCINATIONS AND DELUSIONS. PATIENT DENIES SUICIDAL IDEATION AND HOMICIDAL IDEATION. PATIENT IS PARTICIPATIVE DURING ASSESSMENT, HOWEVER ISOLATIVE AND WITHDRAWN. PATIENT DID STATE THAT HE FEELS BETTER AND THAT HE FELT BETTER AFTER MOVING HIS BOWELS EARLY THIS MORNING. PATIENT DID STATE THAT HE WANTED TO TALK TO HIS DAUGHTER NICHOLAS, SO THIS NURSE DID CALL AND LEFT A MESSAGE FOR HER TO CALL BACK. SPEECH IS SOFT, SLOW AND GARBLED AT THIS TIME WITH SELECTIVE MUTENESS. MEDICATION COMPLIANT WITH EDUCATION. Q 15 MINUTE SAFETY CHECKS MAINTAINED. 2 ASSIST WITH ACTIVITIES OF DAILY LIVING. INCONTINENT OF BOWEL AND BLADDER. SET UP FOR MEALS, INTAKES ARE FAIR WITH ADEQUATE FLUIDS. PATIENT IS A CANDELARIA LIFT TO [facility]. P: CONTIUE TO MONITOR FOR SUICIDAL IDEATION, BEHAVIORS, MOOD AND MEDICATION COMPLIANCE. CONTINUE TO PROVIDE ONE ON ONE FOR EMOTIONAL SUPPORT AND PROVIDE SPACE NEEDED. ENCOURAGE TO PARTICIPATE IN GROUP ACTIVITIES AND SOCIALIZE WITH OTHERS.
[2019-10-24 19:46] VITALS: BP 138/54
--- NOTE | 2019-10-24 21:45 | NUR ---
I'M FINE. NO I DON'T WANT ANYTHING. DISCUSSED MEDICATION AND HE AGREED TO TAKE THEM. ONLY ATE A FEW BITES FOR SNACK, SAID I AM FULL. DECLINED TO DISCUSS THE DAY BUT DENIES ANY SUICIDAL THOUGHTS AT THIS TIME. WILL MONITOR FOR CHANGES IN MOOD/BEHAVIOR AND Q15 MINS AND PRN FOR SAFETY
--- NOTE | 2019-10-25 02:24 | NUR ---
24 HR chart check completed.
--- NOTE | 2019-10-25 05:05 | NUR ---
WOUND CARE HERE TO SEE CLIENT
--- NOTE | 2019-10-25 06:15 | NUR ---
AWAKE ALL NIGHT. SLEPT APPROX 30 MINUTES. DENIES ANY PROBLEMS. GOING TO TRY HIM IN WHEELCHAIR TODAY
--- NOTE | 2019-10-25 07:10 | NUR ---
PHYSICAL THERAPY Patient seen this am for therapy visit and was sitting up activity room w/c upon therapist arrival. Patient identified by name / on wristband and was pretty vocal this morning with bouts of random "mumbling", however was very hard to understand / interpret. Patient transfers sit to stand at handrail in hallway, MOD A x 2, demonstrating slow initial rise with B UE support. Patient tolerated approx 1 minute static stand, demonstrating NBOS with mild B knee flexion. Patient needed v/c to improve safety awareness prior to sitting down with proper hand placement to avoid "plopping". Patient also ambulated with use of wh walker, MOD A, 15'x 1, demonstrating POOR standing balance and increased difficulty with walker safety / navigation. Patient also very impulsive while attempting to sit several times without warning, requiring MAX therapist assist to prevent falling backwards. Patient fatigues quickly and reported increased B knee pain when questioned, but unable to rate on 0-10 scale. Patient returned to his w/c with body alarm and remained in activity room at table awaiting breakfast, under [facility] staff Supervision. Will continue per POC as tolerated, total treatment time 16 mintes. Moises Azar, NETWORK TECHNOLOGY INSTRUCTOR
--- NOTE | 2019-10-25 07:23 | NUR ---
OT NOTE Prior to OT session therapist called [facility] and talked to nurse figueredo to get permissiom to treat pt. Upon arrival pt was sitting in dinning colon in standard w/c, agreeable to 20 minute OT session. Pt identified by name and date of with no complaints to date. Sit-stand at hallway hand rail modA x2. Pt was able to stand approx one minute before sitting. Sit-stand from W/C in bathroom maxA X1 with w/w. transferring on commode maxA with w/w due to poor command follow and being impulsive and B knee buckle . transferring off commode modA with w/w due to low rise commode. Functional mobility from bathroom to hallway modA with w/w due to poor command follow and being impulsive wanting to sit down before reaching w/c. Pt attempted UB exercise with towel in dining colon. Pt was unable to complete task due to poor command follow with both verbal and visual cues. Pt left in dining colon in w/c with U aide present and body alarm active. Continue d/c recommended SNF. KERRY Gibbs/RIMA Mccain/Marquis
[2019-10-25 08:00] VITALS: BP 138/62
--- NOTE | 2019-10-25 08:30 | NUR ---
Treatment Plan meeting was held this a.m. with Dr. Zuñiga via telephone, ADRIAN Campbell RN, AT and Editor House Organ in attendance. Plan for discharge /Thursday. [facility].
--- NOTE | 2019-10-25 09:12 | NUR ---
DR MARTINEZ ON UNIT TO ASSESS PATIENT, UPDATE PROVIDED.
--- NOTE | 2019-10-25 12:00 | NUR ---
Clinical Updates faxed to [facility].
--- NOTE | 2019-10-25 12:01 | NUR ---
AM GROUP PT WAS PRESENT FOR MORNING GROUP THERAPY SEATED IN A WHEELCHAIR WATCHING A MOVIE THAT WAS IN PROGRESS. PT ACKNOWLEDGED ME, MADE EYE CONTACT AND SPOKE TO ME FOR THE FIRST TIME SINCE BEING ADMITTED TO THE UNIT. PT DECLINED ANY ACTIVITY OFFERED BUT SIMPLE OBSERVED. PT EXPRESSED NO SUICIDAL IDEATIONS WHILE IN GROUP.
--- NOTE | 2019-10-25 12:42 | NUR ---
Spoke with Yocasta at [facility]. Provided with updates and Plan for discharge or Thursday.
--- NOTE | 2019-10-25 15:46 | NUR ---
PM GROUP PT DID NOT ATTEND AFTERNOON GROUP THERAPY. PT WAS IN BED NAPPING.
[2019-10-25 19:57] VITALS: BP 106/62
--- NOTE | 2019-10-25 21:11 | NUR ---
MEDICATION COMPLIANT. ASKED HOW HIS DAY WAS AND HE RESPONDED FINE I AM TIRED. TOOK HIM TO HIS ROOM AND HE WAS UNABLE TO ASSIST GETTING HIMSELF OUT OF CHAIR. 2ND RN CALLED IN AND WE PUT HIM TO BED. HE IS WEIGHT AT NIGHT AND DOESN'T FOLLOW COMMANDS. FOUL SMELLING FLATUS NOTED, NO BM. CLEANED UP AND PM CARE COMPLETED. POSITION OF COMFORT AND WILL TURN Q 2 HOURS AND PRN FOR SAFETY. WILL MONITOR FOR CHANGES IN MOOD/BEHAVIOR. CONTINUE EMOTIONAL SUPPORT
--- NOTE | 2019-10-26 01:24 | NUR ---
REMAINS AWAKE. YELLING HE NEEDS TO SEE THE BRAKE LIGHT. DIFFICULTY TO REDIRECT. REPOSITIONED FOR COMFORT. CLIENT ALSO MOVES HIMSELF SIDE TO SIDE
--- NOTE | 2019-10-26 02:43 | NUR ---
24 HR chart check completed.
--- NOTE | 2019-10-26 05:46 | NUR ---
SLEPT POOR ALL NIGHT SLEPT A BROKEN 4 HOURS
--- NOTE | 2019-10-26 06:34 | NUR ---
UNABLE TO FOLLOW COMMANDS. DIFFICULT TO CHANGE DIAPER. KEPT TRYING TO GET UP SAYING GO BED GO BED. REDIRECTION PROVIDED. WILL CONTINUE TO MONITOR
--- NOTE | 2019-10-26 07:00 | NUR ---
PHYSICAL THERAPY Patient seen this am for therapy visit and was just awakening supine in bed upon therapist arrival. Patient identified by name / on wristband and was joined by OT facilities maintenance assistant this session. Patient transfers supine to sit EOB with MIN A, needing several minutes static EOB sit to fully awaken. Patient performed sit to stand from raised bed surface, MIN A x 2, use of wh walker standing support, then ambulated 5'x 1, MOD A, with B knee buckling episode. Patient also w/c follow and immediately sat down in chair with c/o of B knee pain, however unable to rate pain on 0-10 scale. Patient ambulated additional 10'x 1, wh walker, MOD A, demonstrating NBOS, increased B knee flexion, POOR upright posture and quick onset of fatigue. Patient returned to his w/c and remained in activity room at table with body alarm, under [facility] staff Supervision. Will continue per POC as tolerated, total treatment time 16 minutes. Moises Azar, SANITARY CHEMIST
--- NOTE | 2019-10-26 07:16 | NUR ---
OT NOTE Upon arrival therapist called [facility] and talked to nurse Rocha to get permission to treat pt. Pt was laying supine in bed agreeable to 18 minute OT session. Tranfer supine to EOB Torres x2. Pt was able to sit EOB unsupported to comb hair at CGA. sitting balance F+. Pt was able to karime t-shirt with Torres to get shirt over head. Sit-stand from elevated bed Torres x2. MaxA to [facility] pants with w/w due to decreased ROM and unsteady stance. Functional mobility from room to hallway with w/w modA x2 due to poor command follow and knees buckling leading to pt sitting before reaching w/c. Pt performed BUE exerises in dining colon with towel in all planes with minimal resistance X10 using [place] assist due to poor command follow. Pt left in farhad chair in dining colon with [facility] aide present. Continue d/c recommended SNF. KERRY Gibbs/RIMA Mccain/Marquis
[2019-10-26 07:30] VITALS: BP 112/57
--- NOTE | 2019-10-26 08:30 | NUR ---
Treatment Plan meeting was held this a.m. with Dr. Zuñiga via telephone, ADRIAN Campbell, RN, AT, CLAIMS ATTORNEY-S and Can Filling Room Sweeper in attendance. Plan for discharge /Thursday. Pt. will return to [facility] [place].
--- NOTE | 2019-10-26 11:15 | NUR ---
AM GROUP PT ATTENDED MORNING GROUP THERAPY AND PARTICIPATED BY LISTENING TO MUSIC AND OBSERVING. PT WAS MORE TALKATIVE AND WAS NOTED TO BE TAPPING HIS FOOT TO THE MUSIC. PT EXHIBITED NO ADVERSE BEHAVIORS WHILE IN GROUP.
[2019-10-26 12:07] LABS: BILIRUBIN NEGATIVE; BLOOD 1+ (NEGATIVE); CLARITY TURBID (CLEAR); COLOR YELLOW (YELLOW); GLUCOSE NEGATIVE; KETONE NEGATIVE; LEUKO ESTERASE 2+ (NEGATIVE); NITRITE NEGATIVE (NEGATIVE)
[2019-10-26 12:12] LABS: BACTERIA 4+; RBC 21-30 rbc/hpf (0-2); WBC TNTC wbc/hpf (0-5)
--- NOTE | 2019-10-26 12:16 | NUR ---
ALEJANDRA MARTINEZ CNP ON UNIT TO ASSESS PATIENT AND AWARE OF UA RESULTS.
--- NOTE | 2019-10-26 12:57 | NUR ---
P: VISUAL HALLUCINATION; RESPONDING TO INTERNAL STIMULI, PATTING HIS LEG, CALLING OUT FOR HIS DOG. I: ONE ON ONE, REDIRECTION PROVIDED. R: EFFECTIVE. PATIENT IS ALERT TO PERSON, SITUATION, AWARE OF YEAR 2019. BELIEVES HE IS AT A CARE [place]. LONG/SHORT TERM MEMORY DEFICITS NOTED. MOOD IS STABLE. DENIES ANY HALLLUCINATIONS, DELUSIONS, HI/SI OR PAIN. MEDICATION COMPLAINT. Q 15 MINTUES SAFETY CHECKS. 2 PERSON ASSIST WITH ACTIVITIES OF DAILY LIVING, INCONTINENT OF BOWEL AND BLADDER. SET UP FOR MEALS, INTAKES ARE GOOD WITH ADEQUATE FLUIDS. BEDBATH PROVIDED. PATEINT ABLE TO ASSIST AND FOLLOW SIMPLE DIRECTION. SELF PROPELS IN WHEELCHAIR ON UNIT. PARTICIPATED IN GROUP SESSION AND MAINTAINS EYE CONTACT DURING CONVERSATION. P: CONTINUE TO MONITOR MOOD, VOICED THOUGHTS OF SI AND BEING ISOLATIVE. PROVIDE ONE ON ONE FOR EMOTIONAL SUPPORT, REDIRECTION/ORIENATATION, ENCOURAGE GROUP PARTICIPATION AND INTERACTING WITH STAFF AND OTHER PATIENTS.
--- NOTE | 2019-10-26 15:27 | NUR ---
Spoke with pt as he propelled himself in the hallway. Pt asked what city he was in. Discussed [place]. Pt then stated, "Thye scared the hell out of me last night. The water was up to here." Pt pointed at his hips. Pt then spoke about the [place]. Pt did not appear anxious as he spoke.
--- NOTE | 2019-10-26 15:31 | NUR ---
Shift chart check completed.
[2019-10-26 19:49] VITALS: BP 119/57
[2019-10-26 22:54] VITALS: BP 104/70
--- NOTE | 2019-10-26 22:58 | NUR ---
P-TEARFUL, YELLING OUT, SINGING, RESTLESS. I-ASSESS ORIENTATION, MOOD, AND BEHAVIOR. PROVIDE 1:1 WITH THERAPEUTIC INTERVENTIONS. PRESENT REALITY AND REORIENT. PROVIDE LOW STIMULI ENVIRONMENT AND DIVERSION TECHNIQUES TO HELP CALM. ENCOURAGE MEDICATION COMPLIANCE. MONITOR SLEEP. R-UNABLE TO COMPLETE ASSESSMENT DUE TO PATIENTS SPEECH BEING GARBLED, NONSENSICAL, WILL INTERMITTENTLY FOLLOW SIMPLE COMMANDS OTHERWISE APPEARS GROSSLY CONFUSED. PT MEDICATION COMPLIANT WITHOUT DIFFICULTLY, UNABLE TO EDUCATE DUE TO COGNITION. PT RECEIVED PRN TYLENOL 650MG PO AT 2216 DUE TO NOTED GRIMACING DURING REPOSTIONING OF HIS LEGS WHILE IN BED. PATIENT REMAINS RESTLESS WITH MOMENTS OF TEARFULNESS, YELLING OUT, SINGING, AND COUNTING DESPITE MULTIPLE THERAPEUTIC INTERVENTIONS. PT BROUGHT NEAR NURSE'S STATION IN RONNE CHAIR DUE TO LACK OF SAFETY AWARENESS, ATTEMPTED TO GET OUT OF BED X2 WITHOUT ASSISTANCE. PT ALSO NOTED TO HAVE SUSPECTED HALLUCINATIONS DUE TO BEING OBSERVED TALKING TO UNSEEN OTHERS. UNABLE TO REDIRECT AT THIS TIME. VITALS RECHECKED A NURSING MEASURE AND ARE WNL, T-97.5, P-62, R-18, BP-104/70, [id number] RA. PT MOBILIZES SELF WITH A W/C THROUGHOUT DAY, ASSIST X2/CANDELARIA, INCONTINENT OF BOWEL AND BLADDER. ALL NEEDS ANTICIPATED BY STAFF, FOOD AND FLUIDS ENCOURAGED, ATE HS SNACK THIS SHIFT. NO DISTRESS NOTED. P-WILL CONTINUE TO MONITOR MOOD AND BEHAVIORS. PROVIDE THERAPEUTIC INTERVENTIONS. MAINTAIN Q 15 MIN CHECKS AND PRN FOR SAFETY.
--- NOTE | 2019-10-27 00:10 | NUR ---
PATIENT RESTING WITH EYES CLOSED, RESPIRATIONS EASY AND REGULAR, NO DISTRESS NOTED. PRN TYLENOL EFFECTIVE AT THIS TIME.
--- NOTE | 2019-10-27 06:37 | NUR ---
PATIENT SLEPT APPROX 5 HOURS INTERRUPTED. NO DISTRESS NOTED.
--- NOTE | 2019-10-27 06:41 | NUR ---
24 HOUR CHART CHECK COMPLETED.
--- NOTE | 2019-10-27 07:20 | NUR ---
PHYSICAL THERAPY Patient seen this am for therapy visit and was still resting supine in bed upon therapist arrival. Patient identified by name / and was joined by OT recovery assistant for observation only this session. Patient needed repeated v/c's to complete most task this morning, having a hard time keeping his eyes open as he completed supine to sit EOB transfer MAX A x 2. Patient able to sit EOB to collect himself, CGA, while leaning backwards several times, requirng MIN therapist assist to correct. Patient attempted sit to stand transfer, however at MAX A x 2, unable to complete safely. Patient dependant transfer sit to stand, then SPT to w/c, however did not tolerate safe upright seated posture. Patient performed sit to stand at handrail in hallway, MAX A x 2, however only tolerated approx 15 seconds static stand secondary to decreased cognitive / physical deficits. Following standing acitity, patient returned to Nichol chair this time with padmini pad per Nursing request and remained in activity room with body alarm, under [facility] staff Supervision. Will continue per POC as tolerated, total treatment time 16 minutes. Moises Azar, ENVIRONMENTAL ANALYST
[2019-10-27 07:29] VITALS: BP 123/63
--- NOTE | 2019-10-27 07:33 | NUR ---
OT NOTE Prior to OT session therapist called U and talked to nurse Cope to get permission to treat pt. Pt was laying supine in bed, agreeable to 13 minute OT session with CONSERVATION SPECIALIST and nursing staff present for observation only. Identified by name and date of with no complaints to date. Transfer supine to EOB Max A X2. MaxA to [facility] socks. Stand pivot from EOB to w/c dependent X1. Sit-stand MaxA x2 at [address] hand rail. Pt was able to tolerate approx 15 secs both attempts before sitting due to fatigue and knees buckling. stand-pivot from w/c to farhad chair dependent X1. Throughout session pt presented to OT with fatigue and sluggishness. Pt was left in dining colon with [facility] aide present. Continue d/c recommended SNF. KERRY Gibbs/RIMA Mccain/Marquis
--- NOTE | 2019-10-27 08:31 | NUR ---
DR MENDEZ NOTIFIED OF PT UA SHOWING HEAVY GPC PER HE WILL LOOK INTO IT, NO FURTHER ORDERS AT THIS TIME.
--- NOTE | 2019-10-27 10:48 | NUR ---
Treatment Plan meeting was held this a.m. with Dr. Zuñiga RN, APPLICATIONS SUPPORT LEAD-S and Paste Thinner. Plan for discharge Next Week. Pt. will return to [facility].
--- NOTE | 2019-10-27 12:02 | NUR ---
SPOKE WITH DR MENDEZ RE: PT SPITTING OUT THE MONURAL. THIS NURSE ASKED IF WE COULD POSSIBLY GET AN IM ATB BECAUSE PT SPIT OUT AM PO MEDS ALSO. PER DR MENDEZ, HE WILL ORDER SOMETHING.
[2019-10-27 12:52] LABS: ALBUMIN 3.2 gm/dl (3.1-4.5); ALKALINE PHOSPHATASE 128 U/L (45-117); BUN 30 mg/dl (7-24); CHLORIDE 111 mmol/L (98-107); CREATININE 0.73 mg/dL (0.70-1.30); POTASSIUM 4.1 mmol/L (3.5-5.1); SGOT/AST 11 IU/L (3-35); SGPT/ALT 15 U/L (12-78); SODIUM 145 mmol/L (136-145); TOTAL PROTEIN 6.8 gm/dL (6.4-8.2)
--- NOTE | 2019-10-27 14:20 | NUR ---
ROCEPHIN 1GM IM TO RIGHT BUTTOCK, TOLERATED WELL AND PLACED ON TURN. PATIENT REFUSED TURN PRIOR.
--- NOTE | 2019-10-27 15:27 | NUR ---
Observed pt sleeping in the gerichair in the activity room this AM. Pt was sleeping soundly.
--- NOTE | 2019-10-27 18:59 | NUR ---
P: INCREASED CONFUSION AND YELLING OUT. I: ONE ON ONE, REDIRECTION/ORIENTATION AND ENOURAGE MEAL INTAKES. R: EFFECTIVE. PATIENT IS ALERT TO PERSON, SITUATION WITH CONFUSION. LONG/SHORT TERM MEMORY DEFICITS NOTED. MOOD IS DEPRESSED AND FLAT. NO VOICED STATEMENT OF HI/SI OR PAIN. NO RESPONSE TO INTERAL STIMULI OBSERVED. MEDICATION COMPLAINT. Q 15 MINTUES SAFETY CHECKS. 2 PERSON ASSIST WITH ACTIVITIES OF DAILY LIVING, INCONTINENT OF BOWEL AND BLADDER. SET UP FOR MEALS, POOR INTAKES WITH MUCH ENCOURAGEMENT. 2 PERSON ASSIST WITH TRANSFER VIA CANDELARIA LIFT. P: CONTINUE TO MONITOR MOOD, VOICED THOUGHTS OF SI AND BEING ISOLATIVE AND MEAL INTAKES. PROVIDE ONE ON ONE FOR EMOTIONAL SUPPORT, REDIRECTION/ORIENATATION AND MEAL INTAKES.
[2019-10-27 20:00] VITALS: BP 131/62
--- NOTE | 2019-10-27 23:56 | NUR ---
P-CONFUSION I-PROVIDE 1:1 WITH THERAPEUTIC INTERVENTIONS. REORIENT AND PRESENT REALITY NEEDED. ENCOURAGE MEDICATION COMPLIANCE AND EDUCATE. MONITOR SLEEP. R-PATIENT ALERT TO SELF, CONFUSED. PT SOMNOLENT THIS HS, EASILY AROUSABLE WITH VERBAL STIMULI. WILL NOD HEAD YES OR NO DURING INTERACTIONS BUT OTHERWISE IS MUTE THIS HS. FOOD AND FLUIDS CONTINUED TO BE ENCOURAGED, ATE 100% OF SNACK. MEDICATION COMPLIANT WITHOUT DIFFICULTY WHEN CRUSHED IN ICE CREAM. NO NOTED RESPONDING TO INTERNAL STIMULI OR COMPLAINTS OF PAIN. ALL NEEDS ANTICIPATED BY STAFF. COMPLIANT WITH HOC, ASSIST X2/CANDELARIA, INCONTINENT OF BOWEL AND BLADDER. PT CURRENTLY LAYING DOWN WITH EYES CLOSED, RESPIRATIONS EASY AND REGULAR, NO DISTRESS NOTED. P-CONTINUE TO MONITOR MOOD AND BEHAVIORS. MAINTAIN Q 15 MIN CHECKS AND PRN FOR SAFETY.
--- NOTE | 2019-10-28 06:09 | NUR ---
PATIENT SLEPT APPROX 8 HOURS UNINTERRUPTED. NO DISTRESS NOTED.
--- NOTE | 2019-10-28 06:34 | NUR ---
24 HOUR CHART CHECK COMPLETED.
--- NOTE | 2019-10-28 07:20 | NUR ---
PHYSICAL THERAPY Patient seen this am for therapy visit and was just awakening supine in bed upon therapist arrival. Patient identified by name / on wristband as OT optical assistant was prsesent this morning for observation. Patient was a little "sluggish" upon awakening, requiring repeated tactile / verbal cues to complete all task, transfering supine to sit EOB with MAX A. Patient needed a minute or so to collect himself prior to transfering sit to stand from low bed surface, MOD/SENIOR INFORMATION DEVELOPER x 2. Patient completed SPT to Nichol chair and [facility]. Patient performed several sit to stand transfers at rail, B UE support, MIN A x 2, tolerating approx 20-30 seconds static stand each trial, demonstrating increased B knee flexion. Patient also tolerated B LE prolonged PROM to increase B knee extension, noting limited knee extension lag ~5 degrees. Patient also ambulated along rail, single handrail support, SENIOR INFORMATION DEVELOPER/MOD A, 10'x 1, demonstrating NBOS, uneven stride and POOR upright posture / balance. Patient once again attempted to sit without warning and was Nichol chair follow for safety. Patient returned to his Nichol chair and remained in activity room at table with body alarm for safety, under [facility] staff Supervision awaiting breakfast. Will continue per POC as tolerated, total treatment time 18 minutes. Moises Azar DOULA
[2019-10-28 07:24] VITALS: BP 112/73
--- NOTE | 2019-10-28 07:34 | NUR ---
SPOKE WITH DR. MENDEZ AT [phone] RE: PT UA CULTURE RESULTS, RESULTS READ TO DR, NO FURTHER ORDERS AT THIS TIME.
--- NOTE | 2019-10-28 07:36 | NUR ---
OT NOTE Prior to session therapist called [facility] and talked to nurse Sharma for permission to treat pt. Pt laying supine in bed agreeable to 20 minute OT session. Identified by name and date of with no complaints.Nursing staff and HVAC DESIGNER were present for observation only. Transfer supine to EOB maxA x1. Sit-stand modA x2. Stand pivot from EOB to farhad chair modA x2. Sit-stand Torres x2 at hallway hand rail. Pt was able to tolerate 20 second multiple stands before sitting. Multiple verbal cues needed to reach back for chair when needing to sit. Sit-stand from recliner maxA x2 due to fatigue. functional mobility at hand rail maxA x1. pt tolerated approx 20 seconds of mobility before sitting. Throughout session pt had poor command follow when given for saftey. pt left in farhad chair in dining colon with [facility] aide present. Continue d/c recommended SNF. KERRY Gibbs/RIMA Mccain/Marquis
--- NOTE | 2019-10-28 08:30 | NUR ---
ALEJANDRA MARTINEZ CNP ON UNIT TO ASSESS PATIENT.
--- NOTE | 2019-10-28 08:30 | NUR ---
Treatment Plan meeting was held this a.m. with ADRIAN Campbell, RN, AT, DIANA-S and Technical Specialist Cytology. Plan for discharge Next week. Pt. will return to [facility].
--- NOTE | 2019-10-28 09:18 | NUR ---
DR. CHUA ON UNIT TO ASSESS PATIENT FROM INFECTIOUS DISEASE.
--- NOTE | 2019-10-28 11:40 | NUR ---
AM GROUP PT DID NOT ATTEND MORNING GROUP THERAPY. PT WAS IN BED RESTING.
--- NOTE | 2019-10-28 11:54 | NUR ---
DR. BRAVO ON UNIT TO ASSESS PATIENT, NEW ORDERED PLACED.
--- NOTE | 2019-10-28 12:49 | NUR ---
PHYSICAL THERAPY CO-SIGN I approve of the Physical Therapy notes written above. Kamilah Mckeon PT
--- NOTE | 2019-10-28 13:22 | NUR ---
OCCUPATIONAL THERAPY CO-SIGN I approve of the Occupational Therapy notes written above. IRMA HORNE, OTR/L
--- NOTE | 2019-10-28 13:52 | NUR ---
PT HAS NOT VOIDED THIS SHIFT, UPDATED ALEJANDRA MARTINEZ SCHOOL TEACHER, ADVISED THAT PT WAS BLADDER SCANNED FOR >480. [address]LEJAN[address]A ST CATH PT AT THIS TIME AND THEN CONTINUE TO BLADDER SCAN QSHIFT AND ST CATH IF >400. SHE WILL REVALUATE TOMORROW.
--- NOTE | 2019-10-28 13:56 | NUR ---
Clinical Updates faxed to [facility] Attn: Yocasta.
--- NOTE | 2019-10-28 14:05 | NUR ---
PT ST CATHED FOR A LARGE AMOUNT OG DARK YELL ODOROUS URINE. PT TOLERATED WITHOUT ISSUE.
--- NOTE | 2019-10-28 14:10 | NUR ---
MESSAGE LEFT FOR DR MILLER'S OFFICE RE: BLADDER SCAN AND ST CATH RESULTS.
--- NOTE | 2019-10-28 14:25 | NUR ---
DR BRAVO RETURNED CALL AND UPDATED ON BLADDER SCAN AND ST CATH. NO FURTHER ORDERS AT THIS TIME.
--- NOTE | 2019-10-28 15:38 | NUR ---
PM GROUP PT DID NOT ATTEND AFTERNOON GROUP THERAPY. PT WAS IN BED RESTING
[2019-10-28 20:00] VITALS: BP 110/75
--- NOTE | 2019-10-28 22:30 | NUR ---
Patient bladder scanned and then straight cathed as per doctor's order. 175 cc of dark amna odorous urine. Patient tolerated procedure well.
--- NOTE | 2019-10-28 22:36 | NUR ---
Patiet alert to self with confusion noted. Mood calm,cooperative but isolative to self. Patient denies any SI/HI or hallucinations. No overt s/s of any responding to internal stimuli noted at this time. Patient compliant with HS medications crushed in pudding without any difficulty. Provided 1:1 for emotional support. Redirected/reoriented when needed. Plan to continue to encourage medication compliance. Also continue to provide emotional support and redirect/reorient when needed/appropriate. Will also continue to monitor moods/behaviors. Q 15 minute safety checks continued and maintained. See [facility] flowsheet for further documentation.
--- NOTE | 2019-10-29 05:26 | NUR ---
Patient slept approx. 7 hours throughout shift. Q 15 minute safety checks continued and maintained.
--- NOTE | 2019-10-29 06:20 | NUR ---
Patient bladder scanned and straight cathed for 350 cc of dark amna odorous urine. Bladder scan showed 401cc but straight cath resulted in 350cc. Patient tolerated procedure well.
[2019-10-29 07:58] VITALS: BP 107/67
--- NOTE | 2019-10-29 12:25 | NUR ---
PT BLADDER SCANNED FOR 250CC, UPDATED ALEJANDRA MARTINEZ CUSTOMER COMPLAINT SERVICE SUPERVISOR, PER ALEJANDRA SHE WILL PLACE ORDERS FOR VILLARREAL CATH.
--- NOTE | 2019-10-29 13:15 | NUR ---
18FR VILLARREAL CATH PLACED, BALLOON INFLATED WITH 10CC STERILE WATER, STERILE TECHNIQUE MAINTAINED, CATH STRAP SECUREMENT DEVICE PLACED ON UPPER LEG. PT TOLERATED WITHOUT ISSUE. WILL CONTINUE TO MONITOR OUTPUT.
--- NOTE | 2019-10-29 13:41 | NUR ---
NO ADVERSE MOODS OR BEHAVIORS NOTED. PT ALERT TO PERSON ONLY, CONFUSION AND SHORT TERM MEMORY DEFICITS NOTED PER PT BASELINE. PT MED COMPLIANT WITHOUT DIFFICULTY. PT CALM, MOOD STABLE. PT INTERACTIVE WITH STAFF. NO HALLUCINATIONS OR DELUSIONS NOTED. NO SUICIDAL THOUGHTS OR BEHAVIORS NOTED. PT UP TO A GERICHAIR, REQUIRES A CANDELARIA LIFT FOR TRANSFERS D/T INABILITY TO BEAR WEIGHT AND TRANSFER. PT INCONTINENT OF BOWEL, VILLARREAL CATH REMAINS INTACT, DRAINING DARK YELLOW URINE. PLAN IS TO MONITOR PT BEHAVIORS ON Q15 MIN SAFETY CHECKS, ENCOURAGE MED COMPLIANCE AND PROVIDE MED EDUCATION, PROVIDE EMOTIONAL SUPPORT AND 1:1 FOR PT TO VOICE FEELINGS.
--- NOTE | 2019-10-29 18:13 | NUR ---
PT VILLARREAL EMPTIED WITH 400CC YELLOW URINE CONTAINING SEDIMENT, PT INTAKE THIS SHIFT 1920CC. PT BLADDER SCANNED FOR 0CC. WILL CONTINUE TO MONITOR.
[2019-10-29 20:00] VITALS: BP 127/79
--- NOTE | 2019-10-29 20:50 | NUR ---
UP IN CHAIR. CHERELLE PATENT FOR MAGGIE U/O. ASKED ABOUT DAY AND REPLIED "OK" AND WENT BACK TO WATCHING TV. MEDICATION COMPLIANT AT THIS TIME. VOLTARIN OINTMENT NOT AVAILABLE AT THIS TIME
--- NOTE | 2019-10-30 05:26 | NUR ---
24 HR chart check completed.
--- NOTE | 2019-10-30 06:16 | NUR ---
IMPROVED VILLARREAL OUTPUT. CLIENT MOVED SELF AROUND IN BED. SLEPT WELL PAST 2200PM
[2019-10-30 06:32] LABS: BASO % 0.3 % (0.0-1.0); EOS # 0.2 10*3/uL (0.0-0.4); EOS % 3.4 % (1.0-4.0); HEMATOCRIT 39.6 % (42.0-52.0); LYMPH # 1.1 10*3/uL (1.3-4.4); LYMPH % 19.1 % (27.0-41.0); MEAN CELL VOLUME 90.8 fl (80.0-94.0); MEAN CORPUSCULAR HGB 27.5 pg (27.0-31.0); MEAN CORPUSCULAR HGB CONC 30.3 g/dl (33.0-37.0); MEAN PLATELET VOLUME 10.5 fl (9.6-12.3); MONO # 0.5 10*3/uL (0.1-1.0); MONO % 8.3 % (3.0-9.0); NEUT # 4.1 10*3/uL (2.3-7.9); NEUT % 68.4 % (47.0-73.0); PLATELET COUNT AUTOMATED 127 10*3/uL (130-400); RED BLOOD COUNT 4.36 10*6/uL (4.50-5.90); RED CELL DISTRI WIDTH 13.5 % (0-14.5); WHITE BLOOD COUNT 5.9 10*3/uL (4.8-10.8)
[2019-10-30 06:53] LABS: ALBUMIN 2.8 gm/dl (3.1-4.5); ALKALINE PHOSPHATASE 122 U/L (45-117); BUN 23 mg/dl (7-24); CHLORIDE 110 mmol/L (98-107); CREATININE 0.74 mg/dL (0.70-1.30); SGOT/AST 7 IU/L (3-35); SGPT/ALT 11 U/L (12-78); SODIUM 145 mmol/L (136-145); TOTAL PROTEIN 6.1 gm/dL (6.4-8.2)
[2019-10-30 07:46] VITALS: BP 114/60
--- NOTE | 2019-10-30 12:23 | NUR ---
ALERT TO PERSON. UNABLE TO COMPLETE ORIENTATION ASSESSMENT PT IS NOT TALKING TO THIS NURSE. DEPRESED MOOD. HOPELESS/HELPLESS. CALM. NO HALLUCINATIONS OR DELUSIONS NOTED. NO SI/HI NOTED. VILLARREAL INTACT AND DRAINING WELL YELLOW URINE. PT IS A CANDELARIA LIFT THIS SHIFT DUE TO PT NOT BEARING WEIGHT FOR TRANSFERS. PROVIDED 1:1 FOR THERAPEUTIC COMMUNICATION HOWEVER PT WILL NOT ANSWER QUESTIONS TO THIS NURSE. WILL CONTINUE TO PROVIDE 1:1 FOR THERAPEUTIC COMMUNICATION. BEHAVIORS MONITORED WITH Q15 MINUTE SAFETY CHECKS. MEDICATION COMPLIANT WITHOUT DIFFICULTY. UNABLE TO PROVIDE MEDICATION EDUCATION DUE TO COGNITIVE IMPAIRMENT. WILL CONTINUE TO REASSESS THE PT. SEE [facility] FLOWSHEET FOR SPECIFIC MONITORING.
--- NOTE | 2019-10-30 16:30 | NUR ---
THIS NURSE ASSISTED WITH HOC AND NOTED THE PT PULLING AT THE VILLARREAL SAYING "GET THE CATHETER OUT" THE PT WAS REDIRECTED. PT STOPPED PULLING AT IT. EXPLAINED CONSEQUENCES ASSOCIATED WITH PULLING A CATHETER OUT. RED TINGED URINE NOTED IN THE LINE. VILLARREAL RMAINS INTACT AND DRAINING. EMPTIED AT THIS TIME. OUTPUT AT THIS TIME IS 600CC. WILL CONTINUE TO MONITOR VILLARREAL OUTPUT.
--- NOTE | 2019-10-30 18:18 | NUR ---
VILLARREAL OUTPUT 100 CC WITH RED BLOOD AND CLOTS NOTED. VILLARREAL CHANGED AT THIS TIME DUE TO THE LINE BEING CLOTTED AN VILLARREAL DISLODGED FROM PLACEMENT. STERILE TECHNIQUE MAINTAINED. PT TOLERATED WELL. WILL CONTINUE TO MONITOR VILLARREAL OUTPUT AND ENCOURAGE FLUIDS.
[2019-10-30 20:00] VITALS: BP 141/76
--- NOTE | 2019-10-30 21:01 | NUR ---
ISOLATIVE TO ROOM. STATES DAY WAS FINE BUT HE IS TIRED. MEDICATION COMPLIANT. TOOK IN PO FLUIDS. REFUSED REPOSITIONING WITH MED PASS. OFFERS NO QUESTIONS. WILL MONITOR FOR CHANGES IN MOOD/BEHAVIOR AND Q 15 MINS AND PRN FOR SAFETY
--- NOTE | 2019-10-31 02:34 | NUR ---
24 HR chart check completed.
--- NOTE | 2019-10-31 06:07 | NUR ---
SLEPT WELL PAST 2215PM
--- NOTE | 2019-10-31 07:20 | NUR ---
PHYSICAL THERAPY Patient seen this am for therapy visit and was sitting up in activity room Nichol chair, semi reclined, upon therapist arrival. Patient identified by name / on wristband and more talkative this morning, however bouts of "mumbling" which was hard to understand at times. OT dam tender assistant was also present for observation this session as patient tolerated prolonged B hamstring stretch to increase B knee extension. Patient performed seated B LE therex, all planes, x 10 reps, demonstrating decreased AROM during B LAQ ex. Patient transfers sit to stand at rail, MIN A x 2, with B UE support, tolerating < 1 minute static stand each trial with increased B knee flexion. Patient ambulated 10'x 1, wh walker, MOD A, demonstrting "scissoring" gait pattern, decreased stride and POOR standing posture. Patient fatigues quickly requring Nichol chair follow and returned to chair following treatment. Patient transported via Nichol chair to activity room and remained at table with body alarm, under [facility] staff Supervision awaiting breakfast. Will continue per POC as tolerated, total treatment time 23 minutes. Moises Azar, RETORT COOLER
--- NOTE | 2019-10-31 07:22 | NUR ---
OT NOTE Prior to session therapy called U and talked to nurse Annalisa dunham to treat pt. Pt was in dining colon in farhad chair, agreeable to 10 minute OT session. Identified by name and date of with no complaints. MASS SPECTROMETRY MANAGER and nursing both present for observation only. Sit-stand at hallway hand rail Torres first attempt, able to tolerate approx 1 minute before sitting. second sit-stand modA, tolerated approx 40 seconds before sitting. verbal cues needed to reach back for chair when needing to sit. Sit-stand Torres x2 with w/w for UB support and safety. functional mobility from hallway hand rails to quite room Torres x2 with w/w for safety. pt tolerated approx 50 secomds before needing to sit due to fatigue and knees buckling. Pt completed BUE exercises in dining colon with towel in all planes with moderate resistance X10 at [facility] and occasional [place] for command follow. Pt left in dining colon with alarm active and U aide present. Continue d/c recommended SNF. KERRY Gibbs/RIMA Mccain/Marquis
[2019-10-31 07:52] VITALS: BP 104/58
--- NOTE | 2019-10-31 11:23 | NUR ---
Treatment team meeting held this AM with Shannan Little LEAD ATHLETE, RN, support services coordinator, and CARLOS. Pt is LTC at [facility] with a tentative discharge date of 11/02 or 11/03.
--- NOTE | 2019-10-31 15:54 | NUR ---
PM GROUP/LEISURE INTERESTS PT ATTENDED AFTERNOON GROUP THERAPY AND PARTCIPATED BY WATCHING A MOVIE AND COLORING WITH NURSING STUDENTS. PT WAS QUIET AND ALERT. PT EXPRESSED NO SUICIDAL IDEATIONS WHILE IN GROUP.
[2019-10-31 19:09] VITALS: BP 114/85
--- NOTE | 2019-11-01 02:30 | NUR ---
P-ISOLATIVE, RESTLESS, YELLING OUT I-REDIRECTION WITH 1:1 THERAPEUTIC INTERVENTIONS AND PRESENT REALITY. EDUCATE AND ENCOURAGE MEDICATION COMPLIANCE R-PATIENT MEDICATION COMPLIANT AT HS. PATIENT REFUSED HS SNACK BUT PROVIDED FLUIDS AT HS. PATIENT VERBALLY COMMUNICATING WITH NURSING STAFF. PATIENT YELLING OUT INTERMITTENTLY THROUGHOUT SHIFT. PATIENT RESTLESS THIS SHIFT. PATIENT ATTEMPTING TO SIT AT EDGE OF BED WITHOUT ASSISTANCE. PATIENT PULLING ON VILLARREAL CATHETER THROUGHOUT SHIFT. VILLARREAL CATHETER PATENT AND DRAINING MAGGIE URINE AT THIS TIME. PATIENT TURNED AND REPOSITIONED Q 2 HOURS AND PATIENT WOULD ALSO TURN BY SELF. PATIENT WITH NO HALLUCINATIONS OR DELUSIONS. PATIENT WITH NO HOMICIDAL OR SUICIDAL IDEATIONS. P-CONTINUE TO ENCOURAGE MEDICATION COMPLIANCE, CONTINUE TO PRESENT REALITY, ENCOURAGE GROUP THERAPY WHILE AWAKE
--- NOTE | 2019-11-01 06:51 | NUR ---
PATIENT SLEPT 1 HOURS UNINTERRUPTED SLEEP THROUGHOUT SHIFT. Q 15 MINUTE CHECKS MAINTAINED. 24 HR chart check completed.
--- NOTE | 2019-11-01 07:05 | NUR ---
PHYSICAL THERAPY Patient seen this am for therapy visit and was sitting semi reclined in activity room Nichol chair upon therapist arrival. Patient identified this morning by name / on wristband as OT anesthesiologist assistant was present for observation only this session. Patient presented with bouts of confusion, "mumbling" voice tones which were very hard to understand at times. Patient performed several sit to stand transfers at handrail in hallway, B UE support, MIN A x 2, tolerating < 1 minute static stand each trial. Patient demonstrated 2 episodes of B knee buckling, including "plopping" down in chair without warning. Patient received multiple / repeated v/c's to improve focus on task and to improve standing balance / posture. Patient also attempted gait ex, however unable to complete due to immediate B knee buckling at rail, MAX A. Patient returned to and remained in Nichol chair at table in activity room, with body alarm, under [facility] staff Supervision. Will continue per POC as tolerated, total treatment time 14 minutes. Moises Azar, BEEF LUGGER
--- NOTE | 2019-11-01 07:20 | NUR ---
OT NOTE Prior to tx session, therapist called [facility] and talked to Bonnie MHW and got permission to treat pt. Pt was sitting up in farhad-chair in dining colon agreeable to 25 minute OT session, COOK HOUSE LABORER and nursing were present for observation only. Identified by name and date of with no complaints to date. Sit-stand from hallway hand rail Torres x2 both attempts, tolerating approx 30 seconds with modA to keep standing straight up due to retrograde posture. verbal cues to reach back for chair when needing to sit with poor carry over. Functional mobility attempted at hand rail but was unable to complete due to fatigue. Attempted BUE exercises, pt was able to complete 1 out of three exercises at minimal resistance X10 at [facility] and [facility] for command follow. Pt required tactile and verbal cues for attention to task. Pt was left in dining colon, alarm active with MHW present. Continue d/c recommended SNF. KERRY Gibbs/RIMA Mccain/Marquis
[2019-11-01 07:31] VITALS: BP 133/61
--- NOTE | 2019-11-01 09:32 | NUR ---
DURING MED PASS THE LINUX SOLARIS ADMINISTRATOR ASKED THE STAFF TO LAY THE PT DOWN DUE TO HIM APPEARING TIRED. ONCE THE PT WAS LYING IN BED HE WAS NOTED TO HAVE JERKING MOTIONS WITH ETREMITIES AND FACIAL JERKING MOVEMENTS. THE LINUX SOLARIS ADMINISTRATOR AND MEDICAL STUDENTS WERE NOTIFIED AND THIS NURSE WAS NOTIFIED. DURING ASSESSMENT HIS VITALS WERE FOLLOWS TEMP 97.7, HR 60 RADIALLY, RESPIRATIONS 18, BP 112/50, SPO2 95 RA, BLOOD SUGAR 120. THE DR ORDERED LABS ND CHEST XRAY PT WAS MOUTH BREATHING LOUDER THAN NORMAL. PT BEGAN HAVING SLURRED WORDS. ALEJANDRA MARTINEZ CNP WAS NOTIFIED AND A NEW ORDER PLACED FOR A HEAD CT. DR FARIA WAS MADE AWARE AND NEW ORDER FOR PROLACTIN LEVEL WAS RECEIVED. MOUTH CARE WAS PROVIDED AT THIS TIME. WILL CONTINUE TO MONITOR PT.
[2019-11-01 10:05] LABS: BILIRUBIN NEGATIVE; BLOOD 3+ (NEGATIVE); CLARITY CLOUDY (CLEAR); COLOR YELLOW (YELLOW); GLUCOSE NEGATIVE; KETONE NEGATIVE; LEUKO ESTERASE 2+ (NEGATIVE); NITRITE NEGATIVE (NEGATIVE); PH 6.5 (4.5-8.0)
[2019-11-01 10:12] LABS: BASO % 0.2 % (0.0-1.0); EOS # 0.1 10*3/uL (0.0-0.4); EOS % 1.5 % (1.0-4.0); HEMATOCRIT 40.3 % (42.0-52.0); LYMPH # 0.8 10*3/uL (1.3-4.4); LYMPH % 8.5 % (27.0-41.0); MEAN CORPUSCULAR HGB 27.2 pg (27.0-31.0); MEAN CORPUSCULAR HGB CONC 30.3 g/dl (33.0-37.0); MEAN PLATELET VOLUME 10.2 fl (9.6-12.3); MONO # 0.6 10*3/uL (0.1-1.0); MONO % 7.1 % (3.0-9.0); NEUT # 7.2 10*3/uL (2.3-7.9); NEUT % 82.5 % (47.0-73.0); PLATELET COUNT AUTOMATED 136 10*3/uL (130-400); RED BLOOD COUNT 4.48 10*6/uL (4.50-5.90); RED CELL DISTRI WIDTH 13.5 % (0-14.5); WHITE BLOOD COUNT 8.8 10*3/uL (4.8-10.8)
[2019-11-01 10:31] LABS: ALKALINE PHOSPHATASE 127 U/L (45-117); BUN 19 mg/dl (7-24); CHLORIDE 108 mmol/L (98-107); CREATININE 0.75 mg/dL (0.70-1.30); POTASSIUM 4.2 mmol/L (3.5-5.1); SGOT/AST 11 IU/L (3-35); SGPT/ALT 14 U/L (12-78); SODIUM 142 mmol/L (136-145); TOTAL PROTEIN 6.3 gm/dL (6.4-8.2)
--- NOTE | 2019-11-01 10:45 | NUR ---
Treatment team held this AM with Shannan Obrien NP, RN, human resources benefits coordinator, ANALYST MICROBIOLOGY LAB-S and finished goods planner. [facility] and will return there upon discharge. Tentative d/c is end of this week.
--- NOTE | 2019-11-01 10:45 | NUR ---
Treatment team held this AM with Shannan Obrien NP, RN, planning coordinator, tool planner, and CARLOS. Pt will return to [facility] when discharged either at the end of this week or early next week.
[2019-11-01 11:26] LABS: BACTERIA 1+; EPITHELIAL CELLS 0-2; RBC 51-100 rbc/hpf (0-2); WBC 21-30 wbc/hpf (0-5)
[2019-11-01 11:27] LABS: MUCOUS 1+
[2019-11-01 11:28] LABS: CALCIUM OXALATE CRYSTALS 1+
--- NOTE | 2019-11-01 11:47 | NUR ---
AM GROUP PT DID NOT ATTEND MORNING GROUP THERAPY. PT WAS IN HIS ROOM AND OFF THE UNIT FOR TESTING.
--- NOTE | 2019-11-01 12:30 | NUR ---
VITAL SIGNS COMPLETED AT THIS TIME AND WERE FOLLOWS 97.5 T, BP 110/70, HEART RATE 70, RESPIRATIONS 18, SPO2 95%RA. WILL CONTINUE TO MONITOR PT CONDITION. PT CONTINUES TO HAVE JERKING MOTIONS AT THIS TIME.
--- NOTE | 2019-11-01 15:08 | NUR ---
OCCUPATIONAL THERAPY CO-SIGN I approve of the Occupational Therapy notes written above. IRMA HORNE, OTR/L
--- NOTE | 2019-11-01 15:35 | NUR ---
SPEECH THERAPY ON UNIT TO ASSESS PT. SPEECH THERAPY THOUGHT FOR SAFETY REASONS TO CHANGE PT'S DIET TO PUREED AND NECTAR THICK LIQUIDS.
--- NOTE | 2019-11-01 15:39 | NUR ---
SPEECH PATHOLOGY Clinical swallowing evaluation completed as per orders due to suspected aspiration. Patient has been on U since 10/16/19 after [facility] due to mood instability and suicidal ideation. Further history includes CVA, CAD, anxiety and AD. Earlier this date, patient began to display a change in mental status and difficulty eating. He currently receives a soft diet and thin liquid. For assessment this pm, patient was awake and with generalized weakness. He kept his eyes closed during most of the encounter and his head was extended back. Frequent involuntary movements were displayed. He was able to follow commands for oral assessment and displayed mild weakness and reduced ROM. He was assessed with puree, honey thick and nectar thick liquids. Solids were not offered at this time due to his condition. Clinician held his head upright for safety while he ate. He displayed slow oral propulsion but no cough, choke or wet vocal quality post swallow. He took thick liquid by spoon and cup and was able to swallow with no cough or wet vocal quality. Recommend diet change to puree and nectar liquid with use of safe swallow strategies such as upright positioning with meals, assistance to keep his head upright as needed, small bites/sips, allowing him extra time to propel and swallow food and alternating food and thick liquid. Follow up therapy is recommended to ensure safety through education and use of safe swallow precautions. Results and subhash. were shared with patient and his nurse and they verbalized understanding. Refer to report in [employer] for further information. Thank you for this referral. TAYLOR ONEIL MSCCC-RADIO TECHNICIAN
--- NOTE | 2019-11-01 15:49 | NUR ---
PM GROUP PT DID NOT ATTEND AFTERNOON GROUP THERAPY UNTIL A HALF HOUR LEFT. PT IS UNABLE/UNWILLING TO PARTICIPATE IN ANY ACTIVITY OFFERED. PT EXHIBITED NO ADVERSE BEHAVIORS WHILE IN GROUP.
[2019-11-01 16:47] VITALS: BP 131/89
[2019-11-01 20:00] VITALS: BP 131/79
[2019-11-02] VITALS: BP 134/74
--- NOTE | 2019-11-02 01:00 | NUR ---
DR DEXTER UPDATED ABOUT PATIENT SPO2 RESULTS. PATIENT O2 SATURATION BETWEEN 86-91% ON ROOM AIR. PATIENT WITH OCCASSIONAL SHALLOW BREATHING AND PERIODS OF APNEA OF [address] DEXTER AWARE THAT PATIENT WITH OXYGEN APPLIED AT 2L O2 VIA NASAL CANNULA AT THIS TIME.
--- NOTE | 2019-11-02 02:07 | NUR ---
NURSING TAPE RULES PRINTING MACHINE OPERATOR UPDATED ABOUT PATIENT CONDTION
--- NOTE | 2019-11-02 02:16 | NUR ---
P-ISOLATIVE, RESTLESS I-REDIRECTION WITH 1:1 THERAPEUTIC INTERVENTIONS AND PRESENT REALITY. EDUCATE AND ENCOURAGE MEDICATION COMPLIANCE R-PATIENT MEDICATION COMPLIANT AT HS WITH ENCOURAGEMENT. PATIENT PROVIDED NOURISHMENT AND FLUIDS AT HS BUT WITH SOME DIFFICULTY SWALLOWING. PATIENT RESTLESS AND ATTEMPTING TO CLIMB OUT OF CHAIR IN DINING AREA. REDIRECTION WITH 1:1 THERAPEUTIC INTERVENTIONS PROVIDED. PATIENT CONTINUES OMNICEF WITH NO ADVERSE REACTION. PATIENT WITH VILLARREAL CATHETER AND DRAINING MAGGIE URINE AT THIS TIME. PATIENT TURNED AND REPOSITIONED Q 2 HOURS AND PATIENT AT TIMES TURNING ON OWN. PATIENT WITH NO HALLUCINATIONS OR DELUSIONS. PATIENT WITH NO HOMICIDAL OR SUICIDAL IDEATIONS. PATIENT CONTINUES ON NEUROCHECK ASSESSMENT AND MONITORING. P-CONTINUE TO ENCOURAGE MEDICATION COMPLIANCE, CONTINUE TO PRESENT REALITY, ENCOURAGE GROUP THERAPY WHILE AWAKE
[2019-11-02 04:00] VITALS: BP 130/68
--- NOTE | 2019-11-02 04:29 | NUR ---
THIS NURSE SPOKE TO IRIS FROM [facility] TO SEE IF ANY [facility] PAPER WORK WAS AVAILABLE. FAX RECEIVED FROM [facility] WITH PAPEWORK FOR [facility] RECEIVED AND PLACED ON CHART
--- NOTE | 2019-11-02 06:27 | NUR ---
PATIENT SLEPT 8 HOURS OF INTERRUPTED SLEEP THROUGHOUT SHIFT. Q 15 MINUTE CHECKS MAINTAINED. 24 HR chart check completed.
--- NOTE | 2019-11-02 07:10 | NUR ---
OT NOTE Attempted to see pt this A.M. for OT session and upon arrival pt's nurse reported that pt is to be on hold from any therapy at this time due to current medical condition. No treatment provided. Will continue with POC when able. BRIANNA Herrera
[2019-11-02 07:35] VITALS: BP 119/55
[2019-11-02] MEDS ORDERED: TRINTELLIX20 MG PO (08:11)
[2019-11-02] MEDS ORDERED: MEMANTINE HCL10 MG PO (08:11)
[2019-11-02] MEDS ORDERED: ABILIFY5 MG PO (08:11)
[2019-11-02 08:22] LABS: BASO % 0.3 % (0.0-1.0); EOS # 0.2 10*3/uL (0.0-0.4); EOS % 2.7 % (1.0-4.0); HEMATOCRIT 39.4 % (42.0-52.0); LYMPH % 13.3 % (27.0-41.0); MEAN CELL VOLUME 88.5 fl (80.0-94.0); MEAN CORPUSCULAR HGB 27.4 pg (27.0-31.0); MEAN PLATELET VOLUME 9.9 fl (9.6-12.3); MONO # 0.6 10*3/uL (0.1-1.0); MONO % 8.2 % (3.0-9.0); NEUT # 5.5 10*3/uL (2.3-7.9); NEUT % 75.2 % (47.0-73.0); PLATELET COUNT AUTOMATED 146 10*3/uL (130-400); RED BLOOD COUNT 4.45 10*6/uL (4.50-5.90); RED CELL DISTRI WIDTH 13.4 % (0-14.5); WHITE BLOOD COUNT 7.3 10*3/uL (4.8-10.8)
[2019-11-02 08:34] LABS: BUN 16 mg/dl (7-24); CHLORIDE 109 mmol/L (98-107); CREATININE 0.73 mg/dL (0.70-1.30); POTASSIUM 4.4 mmol/L (3.5-5.1); SODIUM 141 mmol/L (136-145)
--- NOTE | 2019-11-02 08:42 | NUR ---
0751-ALEJANDRA MARTINEZ SENIOR NET C DEVELOPER CALLED UNIT TO UPDATE ON PT, UPDATE PROVIDED, PER ALEJANDRA SHE WILL BE DOWN TO SEE PT. 0759- ALEJANDRA MARTINEZ ON UNIT TO ASSESS PT, ALEJANDRA SPOKE WITH DTR NICHOLAS RE: PT CHANGE IN CONDITION, DECISION MADE TO DISCHARGE PT TO MEDICAL UNIT, NURSING UPHOLSTERY TECH NOTIFIED. 0808- NURSING UPHOLSTERY TECH, ELLEN CALLED UNIT WITH BED FOR PT. ASKED IF PT DTR IS ABLE TO COME IN FOR VISIT, PER ELLEN SHE WILL SPEAK WITH MANAGERS DIANE AND MEHUL ON THE MEDICAL UNIT AND GET BACK TO ME. 0812- PER ELLEN, UPHOLSTERY TECH, PT DTR ABLE TO COME IN FOR VISIT. 0814- PT OFF UNIT ESCORTED BY THIS NURSE, MHW AND SECURITY, TO ROOM 421-1. REPORT GIVEN TO MOON MERCHANT. 0831-DAUGHTER UPDATED THAT SHE IS ABLE TO COME IN FOR A VISIT, ADVISED THAT THEY WILL [facility]KE HER [facility] AND SHE WILL NEED A WEAR A MASK AND TO PLEASE NOT BRING ANY UNNECCESSARY ITEMS WITH HER. PT ALERT TO PERSON ONLY, CONFUSION AND SHORT TERM MEMORY DEFICITS NOTED PER PT CORTNEY. PT MUTE FOR THIS NURSE, WILL OPEN EYES AND RESPOND TO TACTILE STIMULATION. PT SCABS REMAIN TO MULLEN AREA, UNABLE TO TAKE WOUND PHOTOS AT THIS TIME, DUE BEING DISCHARGED TO MEDICAL UNIT. LAST BM 11/02/19. VILLARREAL REMAINS INTACT DRAINING CLEAR YELLOW URINE.
--- NOTE | 2019-11-02 13:20 | NUR ---
OCCUPATIONAL THERAPY CO-SIGN I approve of the Occupational Therapy notes written above. IRMA HORNE, OTR/L
--- NOTE | 2019-11-02 13:48 | NUR ---
Patient discharged to [facility] medical floor. If pt does not return to the [facility], pt will discharge to [facility] where he is a LTC resident.
--- NOTE | 2019-11-03 07:35 | NUR ---
PHYSICAL THERAPY CO-SIGN I approve of the Physical Therapy notes written above. Kamilah Mckeon PT
== END 2019-11-02 08:09 | disposition short-term general hospital (02) | DRG 885 ==
LOC: 3N 01:21
PROVIDERS: Counselor Professional; Family Medicine; Registered Nurse; ADMIT Psychiatry & Neurology Psychiatry; ATTEND Psychiatry & Neurology Psychiatry
DX: F33.9 Major depressive disorder, recurrent, unspecified (principal); R45.851 Suicidal ideations; E44.0 Moderate protein-calorie malnutrition; D61.818 Other pancytopenia; I25.810 Atherosclerosis of coronary artery bypass graft(s) without angina pectoris; N39.0 Urinary tract infection, site not specified; G30.9 Alzheimer's disease, unspecified; F02.80 Dementia in other diseases classified elsewhere, unspecified severity, without behavioral disturbance, psychotic disturbance, mood disturbance, and anxiety; F41.9 Anxiety disorder, unspecified; G47.00 Insomnia, unspecified; M19.90 Unspecified osteoarthritis, unspecified site; E78.5 Hyperlipidemia, unspecified; Z96.652 Presence of left artificial knee joint; R73.9 Hyperglycemia, unspecified; F51.01 Primary insomnia; F94.0 Selective mutism; K59.00 Constipation, unspecified; N40.1 Benign prostatic hyperplasia with lower urinary tract symptoms; R33.8 Other retention of urine; Z20.828 Contact with and (suspected) exposure to other viral communicable diseases; Z95.1 Presence of aortocoronary bypass graft; Z79.899 Other long term (current) drug therapy

== ENCOUNTER 2019-11-02 08:13 | Inpatient (IN) | payer MEDICARE ==
[~2019-11-02] VITALS: Ht 172.7 cm; Wt 81.4 kg
[~2019-11-02 08:13] MED LIST: ABILIFY5 MG PO; COGENTIN0.5 MG PO; COL-RITE100 M1 PO; EXELON1 EAC2 TD; FLOMAX0.4 MG PO; MEMANTINE HCL10 MG PO; METOPROLOL SUCC25 M2 PO; NATURE'S BLEND F1 MG PO; OXYGEN NAS; REMERON30 M1 PO; TRINTELLIX20 MG PO; TYLENOL EXTRA500 MG PO; VISTARIL25 MG PO; VISTARIL50 MG PO; VITAMIN D31250 MC1 PO; ZOCOR80 MG PO
[2019-11-02 08:15] VITALS: BP 96/76
[2019-11-02 12:00] VITALS: BP 130/64
[2019-11-02 16:00] VITALS: BP 117/69
[2019-11-02 20:00] VITALS: BP 150/65
[2019-11-03] VITALS: BP 134/59
[2019-11-03 06:26] LABS: BASO % 0.3 % (0.0-1.0); EOS # 0.2 10*3/uL (0.0-0.4); EOS % 2.1 % (1.0-4.0); HEMATOCRIT 39.4 % (42.0-52.0); LYMPH # 0.9 10*3/uL (1.3-4.4); LYMPH % 10.1 % (27.0-41.0); MEAN CELL VOLUME 88.9 fl (80.0-94.0); MEAN CORPUSCULAR HGB 27.5 pg (27.0-31.0); MEAN PLATELET VOLUME 10.1 fl (9.6-12.3); MONO # 0.7 10*3/uL (0.1-1.0); MONO % 7.7 % (3.0-9.0); NEUT # 6.9 10*3/uL (2.3-7.9); NEUT % 79.6 % (47.0-73.0); PLATELET COUNT AUTOMATED 154 10*3/uL (130-400); RED BLOOD COUNT 4.43 10*6/uL (4.50-5.90); RED CELL DISTRI WIDTH 13.3 % (0-14.5); WHITE BLOOD COUNT 8.7 10*3/uL (4.8-10.8)
[2019-11-03 06:50] LABS: ALBUMIN 2.9 gm/dl (3.1-4.5); ALKALINE PHOSPHATASE 123 U/L (45-117); BUN 16 mg/dl (7-24); CHLORIDE 110 mmol/L (98-107); CREATININE 0.66 mg/dL (0.70-1.30); SGOT/AST 13 IU/L (3-35); SGPT/ALT 15 U/L (12-78); SODIUM 139 mmol/L (136-145); TOTAL PROTEIN 6.4 gm/dL (6.4-8.2)
[2019-11-03 12:00] VITALS: BP 122/88
[2019-11-03 16:00] VITALS: BP 109/85
[2019-11-03 20:00] VITALS: BP 144/73
[2019-11-04] VITALS: BP 134/70
[2019-11-04 06:05] LABS: BASO % 0.2 % (0.0-1.0); EOS # 0.1 10*3/uL (0.0-0.4); EOS % 1.1 % (1.0-4.0); HEMATOCRIT 41.7 % (42.0-52.0); LYMPH # 0.8 10*3/uL (1.3-4.4); LYMPH % 8.8 % (27.0-41.0); MEAN CELL VOLUME 87.6 fl (80.0-94.0); MEAN CORPUSCULAR HGB 27.1 pg (27.0-31.0); MEAN CORPUSCULAR HGB CONC 30.9 g/dl (33.0-37.0); MEAN PLATELET VOLUME 10.4 fl (9.6-12.3); MONO # 0.8 10*3/uL (0.1-1.0); MONO % 9.4 % (3.0-9.0); NEUT % 80.3 % (47.0-73.0); PLATELET COUNT AUTOMATED 182 10*3/uL (130-400); RED BLOOD COUNT 4.76 10*6/uL (4.50-5.90); RED CELL DISTRI WIDTH 13.3 % (0-14.5); WHITE BLOOD COUNT 8.7 10*3/uL (4.8-10.8)
[2019-11-04 06:08] LABS: BUN 18 mg/dl (7-24); CHLORIDE 109 mmol/L (98-107); CREATININE 0.72 mg/dL (0.70-1.30); POTASSIUM 4.1 mmol/L (3.5-5.1); SODIUM 142 mmol/L (136-145)
[2019-11-04 08:00] VITALS: BP 142/69
[2019-11-04 12:00] VITALS: BP 131/71
[2019-11-04 16:00] VITALS: BP 129/79
[2019-11-04 20:00] VITALS: BP 146/62
[2019-11-05] VITALS: BP 124/68
[2019-11-05 08:00] VITALS: BP 97/77
[2019-11-05 12:00] VITALS: BP 129/88
== END 2019-11-05 18:01 | disposition home or self-care (01) | DRG 189 ==
LOC: 4E 08:13
PROVIDERS: Internal Medicine; Registered Nurse; ADMIT Family Medicine; ATTEND Family Medicine
DX: J96.01 Acute respiratory failure with hypoxia (principal); G93.41 Metabolic encephalopathy; N30.01 Acute cystitis with hematuria; R45.851 Suicidal ideations; E44.0 Moderate protein-calorie malnutrition; F33.9 Major depressive disorder, recurrent, unspecified; E87.2 Acidosis; I25.10 Atherosclerotic heart disease of native coronary artery without angina pectoris; G30.9 Alzheimer's disease, unspecified; F41.9 Anxiety disorder, unspecified; F94.0 Selective mutism; F02.80 Dementia in other diseases classified elsewhere, unspecified severity, without behavioral disturbance, psychotic disturbance, mood disturbance, and anxiety; Z96.652 Presence of left artificial knee joint; N40.1 Benign prostatic hyperplasia with lower urinary tract symptoms; R33.8 Other retention of urine; G47.00 Insomnia, unspecified; M19.90 Unspecified osteoarthritis, unspecified site; E83.41 Hypermagnesemia; D64.9 Anemia, unspecified; E87.8 Other disorders of electrolyte and fluid balance, not elsewhere classified; R74.8 Abnormal levels of other serum enzymes; Z66 Do not resuscitate; Z51.5 Encounter for palliative care; Z95.1 Presence of aortocoronary bypass graft; Z79.899 Other long term (current) drug therapy; S81.811A Laceration without foreign body, right lower leg, initial encounter; X58.XXXA Exposure to other specified factors, initial encounter; Y93.89 Activity, other specified; Y92.89 Other specified places as the place of occurrence of the external cause; Y99.8 Other external cause status